=== PATIENT | female | born 1995 ===

== ENCOUNTER 2020-07-20 17:18 | Emergency (ER) | payer MEDICAID, SELFPAY ==
--- NOTE | 2020-07-20 19:08 | ED.GENADULT ---
HPI - General Adult General Chief complaint: Headache Stated complaint: headache Time Seen by Provider: 07/20/20 18:49 Source: patient Mode of arrival: ambulatory Limitations: language barrier (Turkish speaking only, rn telehealth used to obtain information) History of Present Illness HPI narrative: 25-year-old female who presents emergency department for evaluation of headache. The patient states that she has had a right-sided headache for 4 days. The pain is a sharp, stabbing, constant pain which is 10/10 at its worst. She 10 height associated fever, chills, neck pain, nausea, vomiting, rhinorrhea, cough, chest pain or shortness of breath. She denied numbness or weakness. She states she had a similar headache 2 years prior and was secondary to anemia. Patient states she took ibuprofen without any relief of her pain. Currently in the emergency department she states that her pain is 10/10. Related Data Previous Rx's Medication Instructions Recorded ferrous sulfate 325 mg PO TID #360 tab 07/20/20 metoclopramide HCl [Reglan] 10 mg PO Q6H PRN #14 tab 07/20/20 Allergies Allergy/AdvReac Type Severity Reaction Status Date / Time garlic [GARLIC] Allergy Unknown SWELLING Unverified 03/11/20 19:48 Review of Systems Review of Systems: Yes all other systems are reviewed and are negative Neurologic: Reports Abnormal speech present [facility] Past Medical History [facility] Narrative: Patient has a history of asthma and anemia, she denies tobacco, alcohol and drug use. Medical History (Updated 07/20/20 @ 20:53 by Camden Morgan MD) Anemia Asthma Social History Social History Advance Directives: No Physical Exam Vital Signs: Vital Signs: Last Vital Signs Temp 98.0 F 07/20/20 19:11 Pulse 120 H 07/20/20 19:11 Resp 18 07/20/20 19:11 BP 149/85 H 07/20/20 19:11 Pulse Ox 100 07/20/20 19:11 Body Mass Index 55.7 Const: General: cooperative, no acute distress, alert and awake Nutritional Appearance: obese Orientation/consciousness: oriented to person and oriented to place Limitations: no limitations HENMT: Head: Yes normal to inspection, Yes normocephalic and Yes atraumatic Ears: external ears normal General nose exam: Normal external nose present Face and sinus: Yes normal facial exam and Yes Facial tenderness on exam of face and sinuses (Bilateral frontal and right church area) Mouth: Normal oral and palatal mucosa present Throat: Yes posterior oropharynx normal Eyes: General: appearance normal, both eyes and all related structures Periorbital: periorbital findings normal Eyelids: Yes eyelids normal Conjunctivae: conjunctivae normal Sclerae: sclerae normal Corneas: corneas normal Pupils: Equal, round and reactive pupils present Direct Ophthalmoscopy: normal light reflex Neck: Neck: Yes normal visual inspection and Yes supple Lymphatic: no lymphadenopathy noted Chest: Chest palpation & inspection: normal inspection of the chest and normal palpation of entire chest wall Resp: Effort & Inspection: normal respiratory effort, abnormal respiratory pattern, no audible wheezes and no respiratory distress Auscultation: clear to auscultation bilaterally, no crackles, no rales, no rhonchi and no wheezes Cardio: Rate: regular rate Rhythm: regular rhythm Heart sounds: S1 normal heart sound present, S2 normal heart sound present and Murmur heart sound present GI: Inspection: No distended Palpation (GI): Soft to palpation, nontender, no guarding and No hepatosplenomegaly present Auscultation: normal bowel sounds : General: Yes no CVA tenderness Back/Spine/Pelvis: Back: no CVA tenderness Cervical Spine: normal cervical lordosis Thoracic/Lumbar Spine: thoracic and lumbar spine normal to inspection Skin: General skin exam: no rashes or lesions noted Lesions: no lesions Rashes: no rashes Wounds: no wounds Neuro: General: oriented to person and oriented to place Cranial nerves: Yes CN's II-XII intact bilaterally and Yes Equal, round and reactive pupils present Cognition (Neuro): normal cognition Speech: Abnormal speech present Motor exam (neuro): 5/5 motor strength present throughout Extrem: General: Yes normal to inspection, Yes full ROM, Yes no pedal edema and Yes no calf tenderness Psych: Appearance: grossly normal Mental Status: mental status grossly normal Speech and movement: Clear speech present Affect: normal affect Attitude: cooperative Thought process: Normal thought process present Thought content: Normal thought content present Course Course Course Narrative: 25-year-old female who presents emergency department for evaluation of right-sided headache x4 days, physical examination revealed tenderness with palpation of the frontal and right temporal regions of her head otherwise was unremarkable. I did order laboratory evaluation to include CBC and comprehensive metabolic panel since the patient states that in the past she has had this type of headache with severe anemia. The patient's headache was treated with Toradol 30 mg IV, regular and 10 mg IV and Benadryl 50 mg IV. 2046: The patient's laboratory evaluation did reveal significant anemia with an H&H of 5.9 and 23.3. She did have a very low MCV of 62.6. The patient does have heavy menses and I suspect that she has not been compliant with her iron regimen. I did discuss this with her. The patient was prescribed iron sulfate 300 mg 3 times a day, I told her that she needs to take this for 3 months. She was advised to follow-up in 2 weeks with her doctor to get a repeat H&H. The patient's headaches will be treated with the following regimen: Reglan 10 mg, Benadryl 50 mg in extra-strength Tylenol 2 tablets every 6 hours as needed for headache. She was given verbal and printed instructions and discharged home. Medical Decision Making Lab Data Result diagrams: 07/20/20 19:45 07/20/20 19:46 Labs: Lab Results 07/20/20 07/20/20 Range/Units 19:45 19:46 WBC 11.4 H (4.8-10.8) X10*3/uL RBC 3.72 L (4.20-5.50) X10*6/uL Hgb 5.9 L* (12.0-16.0) g/dl Hct 23.3 L (37-47) % MCV 62.6 L (80-98) fL MCH 15.9 L (27.0-33.0) pg MCHC 25.3 L (31.0-35.0) g/dl RDW 24.3 H (11.0-16.0) % Plt Count 419 H (160-400) X10*3/uL MPV 9.3 L (9.4-12.3) fL Immature Gran % (Auto) 0.4 (0.0-0.4) % Neut % (Auto) 70.3 (45-73) % Lymph % (Auto) 14.9 L (20-40) % [place] % (Auto) 3.3 (2-11) % Eos % (Auto) 10.7 H (0-4) % Baso % (Auto) 0.4 (0-2) % Lymph # (Auto) 1.7 (1.2-4.9) X10*3/uL [place] # (Auto) 0.4 (0.1-1.2) X10*3/uL Eos # (Auto) 1.2 H (0.0-0.4) X10*3/uL Baso # (Auto) 0.0 (0.0-0.2) X10*3/uL Abs Immat Gran (auto) 0.05 H (0.00-0.03) X10*3/uL Absolute Neuts (auto) 8.0 (2.0-8.3) X10*3/uL Absolute Nucleated RBC 0.040 H (0.0-0.012) X10*3/uL Nucleated RBC % (auto) 0.4 H (0.0-0.2) /100WBC Sodium 140 (135-145) mmol/L Potassium 4.7 (3.3-5.1) mmol/l Chloride 106 (96-108) mmol/L Carbon Dioxide 23 (22-29) mmol/L Anion Gap 16 (12-20) BUN 12 (9-16) mg/dL Creatinine 0.80 (0.5-1.4) mg/dL Estim Creat Clear Calc 157.1 Estimated GFR > 60 Random Glucose 125 H (60-115) mg/dL Calcium 9.0 (8.4-10.2) mg/dL Total Bilirubin 0.7 (0.0-1.0) mg/dL AST 24 (5-31) U/L ALT 13 (0-31) U/L Alkaline Phosphatase 69 (39-117) U/L Total Protein 8.0 (6.5-8.0) g/dL Albumin 4.1 (3.5-5.0) g/dL Discharge Plan Discharge Clinical Impression: Microcytic anemia Headache Qualifiers: Headache type: unspecified Headache chronicity pattern: acute headache Intractability: not intractable Qualified Code(s): R51.9 - Headache, unspecified Patient Disposition: Home, Self-Care Instructions: Iron Deficiency Anemia (ED) Additional Instructions: Your blood work did reveal a low hemoglobin and hematocrit of 5.9 in 23.3. A normal hemoglobin is 12 and a normal hematocrit is 35. These low values are due to the fact that you lose iron every time you have menstrual bleeding therefore you need to take iron sulfate 300 mg, 3 times a day for 3 months. It is important that you follow-up with your doctor in 2 weeks to get a repeat hematocrit and hemoglobin and hopefully they will be improvement if you take your iron. For your headaches you can take the following medications together every 6 hours: Extra-strength Tylenol 500 mg, 2 pills Benadryl 25 mg pills, 2 pills Reglan (metoclopramide) 10 mg, 1 pill These medications will make you sleepy, lie down in a dark quiet room and that should help your headache go away. Do not drive if you take these medications. Follow-up with your doctor in 2 weeks. Please return to the emergency department if your symptoms get worse or if you develop any symptoms that are concerning to you. Prescriptions: New metoclopramide HCl [Reglan] 10 mg tablet 10 mg PO Q6H PRN (Reason: nausea and vomiting) Qty: 14 RF: 0 ferrous sulfate 325 mg (65 mg iron) tablet 325 mg PO TID Qty: 360 RF: 0 Referrals: [place] [Primary Care Provider] - 2 weeks (Migraine like headache, low H&H 5.9 and 23.3 with a low MCV of 62.6. Started on iron sulfate 3 times a day, needs repeat H&H in 2 weeks)
[2020-07-20 19:11] VITALS: BP 149/85; PULSE 120; RESP 18; TEMP 36.7; O2SAT 100; BMI 55.7
--- NOTE | 2020-07-20 19:15 | PC.NURSE ---
ASSUMED CARE OF PT. MD IN ROOM WITH SOCIALLY RESPONSIBLE INVESTMENT ADVISER.
--- NOTE | 2020-07-20 19:40 | PC.NURSE ---
IV PLACED TO LAC, LABS DRAWN TO LAB. NS UP AND RUNNING W/O, SITE INTACT. PT MEDICATED PER EMAR FOR MIGRAINE PAIN.
[2020-07-20 19:52] LABS: MANUAL DIFF FLAG NO
[2020-07-20 19:53] LABS: Monocytes Absolute Auto 0.4 X10*3/uL (0.1-1.2); Monocytes Percent Auto 3.3 % (2-11); NRBC Pct Auto 0.4 /100WBC (0.0-0.2)
[2020-07-20 19:57] LABS: Basophils Percent Auto 0.4 % (0-2); Eosinophils Absolute Auto 1.2 X10*3/uL (0.0-0.4); Eosinophils Percent Auto 10.7 % (0-4); Hematocrit 23.3 % (37-47); Imm Gran Abs Auto 0.05 X10*3/uL (0.00-0.03); Imm Gran Pct Auto 0.4 % (0.0-0.4); Lymphocytes Absolute Auto 1.7 X10*3/uL (1.2-4.9); Lymphocytes Percent Auto 14.9 % (20-40); Mean Corpuscular HGB Conc 25.3 g/dl (31.0-35.0); Mean Corpuscular Hemoglobin 15.9 pg (27.0-33.0); Mean Platelet Volume 9.3 fL (9.4-12.3); Neutrophils Percent Auto 70.3 % (45-73); Platelet Count 419 X10*3/uL (160-400); Red Blood Count 3.72 X10*6/uL (4.20-5.50); Red Cell Distribution Width 24.3 % (11.0-16.0); White Blood Count 11.4 X10*3/uL (4.8-10.8)
[2020-07-20] MEDS: Metoclopramide HCl 10 MG/2 ML VIAL IVPUSH (20:04)
[2020-07-20] MEDS: diphenhydrAMINE HCL 50 MG/ML VIAL IVPUSH (20:04)
[2020-07-20] MEDS: Ketorolac Tromethamine 30 MG/ML VIAL IVPUSH (20:05)
[2020-07-20] MEDS: 0.9 % Sodium Chloride 1,000 ML 999 ML IV (20:05)
[2020-07-20 20:15] LABS: Mean Corpuscular Volume 62.6 fL (80-98)
[2020-07-20 20:17] LABS: Hemoglobin 5.9 g/dl (12.0-16.0)
[2020-07-20 20:25] LABS: Alanine Aminotransferase 13 U/L (0-31); Albumin Level 4.1 g/dL (3.5-5.0); Alkaline Phosphatase 69 U/L (39-117); Anion Gap 16 (12-20); Aspartate Amino Transferase 24 U/L (5-31); Bilirubin Total 0.7 mg/dL (0.0-1.0); Blood Urea Nitrogen 12 mg/dL (9-16); Carbon Dioxide 23 mmol/L (22-29); Chloride 106 mmol/L (96-108); Creatinine Clr Calc Pharmacy 157.1; Estimated Glomerular Filt Rate > 60; Glucose Random 125 mg/dL (60-115); Potassium 4.7 mmol/l (3.3-5.1); Sodium 140 mmol/L (135-145)
--- NOTE | 2020-07-20 20:38 | PC.NURSE ---
HGB 5.9 MD AWARE. MD IN ROOM WITH INTRETPRETOR FOR RE-EVAL. WILL CONTINUE TO MONITOR PT.
== END 2020-07-20 21:29 | disposition home or self-care (01) ==
PROVIDERS: Emergency Provider Emergency Medicine Emergency Medical Services
DX: R51.9 Headache, unspecified (principal); D50.9 Iron deficiency anemia, unspecified
CPT/HCPCS: 36415; 80053; 85025; 85060; 96361; 96374; 96375; 99283; 99284; J1200; J1885; J2765

== ENCOUNTER 2021-03-21 17:00 | Emergency (ER) | payer MEDICAID, SELFPAY ==
[2021-03-21 19:26] VITALS: BP 122/90; PULSE 90; RESP 16; TEMP 36.5; O2SAT 100; BMI 60.7
[2021-03-21 20:13] LABS: MANUAL DIFF FLAG NO
[2021-03-21 20:14] LABS: Basophils Percent Auto 0.1 % (0-2); Eosinophils Absolute Auto 0.1 X10*3/uL (0.0-0.4); Eosinophils Percent Auto 0.8 % (0-4); Hematocrit 27.1 % (37-47); Hemoglobin 7.1 g/dl (12.0-16.0); Imm Gran Abs Auto 0.05 X10*3/uL (0.00-0.03); Imm Gran Pct Auto 0.5 % (0.0-0.4); Mean Corpuscular HGB Conc 26.2 g/dl (31.0-35.0); Mean Corpuscular Hemoglobin 16.3 pg (27.0-33.0); Mean Platelet Volume 9.6 fL (9.4-12.3); Monocytes Absolute Auto 0.5 X10*3/uL (0.1-1.2); Monocytes Percent Auto 4.4 % (2-11); NRBC Pct Auto 0.3 /100WBC (0.0-0.2); Neutrophils Percent Auto 75.2 % (45-73); Platelet Count 521 X10*3/uL (160-400); Red Blood Count 4.35 X10*6/uL (4.20-5.50); Red Cell Distribution Width 23.3 % (11.0-16.0); White Blood Count 10.6 X10*3/uL (4.8-10.8)
[2021-03-21 20:15] LABS: Mean Corpuscular Volume 62.3 fL (80-98)
[2021-03-21 20:31] LABS: Alanine Aminotransferase 12 U/L (0-31); Albumin Level 4.5 g/dL (3.5-5.0); Alkaline Phosphatase 73 U/L (39-117); Anion Gap 15 (12-20); Aspartate Amino Transferase 14 U/L (5-31); Bilirubin Direct 0.5 mg/dL (0.0-0.5); Bilirubin Total 1.3 mg/dL (0.0-1.0); Blood Urea Nitrogen 10 mg/dL (9-16); Calcium 9.6 mg/dL (8.4-10.2); Carbon Dioxide 23 mmol/L (22-29); Chloride 105 mmol/L (96-108); Creatinine Clr Calc Pharmacy 168.2; Estimated Glomerular Filt Rate > 60; Glucose Random 94 mg/dL (60-115); Lipase 19 U/L (8-78); Potassium 4.4 mmol/L (3.3-5.1); Sodium 139 mmol/L (135-145); Total Protein 8.1 g/dL (6.5-8.0)
[2021-03-21 21:10] VITALS: BP 133/79; PULSE 95; RESP 18; TEMP 37.3; O2SAT 100
--- NOTE | 2021-03-21 21:20 | ED.ABDPAIN ---
HPI - Abdominal Pain General Chief Complaint: Abdominal Pain Stated Complaint: diarrhea Time Seen by Provider: 03/21/21 21:19 Source: patient Mode of arrival: ambulatory Limitations: no limitations History of Present Illness HPI narrative: Patient history of chronic anemia not taking her iron pills been nauseated and vomiting for last 2 days 10-15 times a day with few loose bowels unable to take anything p.o.. Diffuse abdominal pain no fever no chills no recent use antibiotics no urinary complaints no dizziness or passing out Related Data Previous Rx's Medication Instructions Recorded ferrous sulfate 325 mg (65 mg 325 mg PO TID #360 tab 07/20/20 iron) tablet metoclopramide HCl 10 mg tablet 10 mg PO Q6H PRN #14 tab 07/20/20 (Reglan) ferrous sulfate 325 mg (65 mg 325 mg PO DAILY #30 tab 03/21/21 iron) tablet ondansetron 4 mg disintegrating 4 mg PO Q6-8H PRN #7 tab 03/21/21 tablet Allergies Allergy/AdvReac Type Severity Reaction Status Date / Time garlic [GARLIC] Allergy Unknown SWELLING Unverified 03/11/20 19:48 Review of Systems Review of Systems Yes all other systems are reviewed and are negative Physical Exam Vital Signs: Vital Signs: Last Vital Signs Temp 99.2 F 03/21/21 21:10 Pulse 95 03/21/21 21:10 Resp 18 03/21/21 21:10 BP 133/79 03/21/21 21:10 Pulse Ox 100 03/21/21 21:10 Body Mass Index 60.7 Appearance: Alert. Oriented X3. No acute distress. Eyes: Pallor++ ENT: Pharynx normal. Oral Mucosa moist Neck: Normal inspection. Neck supple. CVS: Normal heart rate and rhythm. Pulses normal. Respiratory: No respiratory distress. Equal air entry bilateral, no wheezing/rales/rhonchi Abdomen: Soft and nontender. Bowel sounds are present, no mass palpable, no CVA tenderness Skin: Skin warm and dry. Normal skin color. Normal skin turgor. Extremities: No lower extremity edema. Neuro: Oriented X 3. MDM - Abdominal Pain Lab Data Result diagrams: 03/21/21 19:56 03/21/21 19:56 Labs: Lab Results 03/21/21 03/21/21 03/21/21 Range/Units 19:56 19:56 21:56 WBC 10.6 (4.8-10.8) X10*3/uL RBC 4.35 (4.20-5.50) X10*6/uL Hgb 7.1 L D (12.0-16.0) g/dl Hct 27.1 L (37-47) % MCV 62.3 L (80-98) fL MCH 16.3 L (27.0-33.0) pg MCHC 26.2 L (31.0-35.0) g/dl RDW 23.3 H (11.0-16.0) % Plt Count 521 H (160-400) X10*3/uL MPV 9.6 (9.4-12.3) fL Immature Gran % (Auto) 0.5 H (0.0-0.4) % Neut % (Auto) 75.2 H (45-73) % Lymph % (Auto) 19.0 L (20-40) % [place] % (Auto) 4.4 (2-11) % Eos % (Auto) 0.8 (0-4) % Baso % (Auto) 0.1 (0-2) % Lymph # (Auto) 2.0 (1.2-4.9) X10*3/uL [place] # (Auto) 0.5 (0.1-1.2) X10*3/uL Eos # (Auto) 0.1 (0.0-0.4) X10*3/uL Baso # (Auto) 0.0 (0.0-0.2) X10*3/uL Abs Immat Gran (auto) 0.05 H (0.00-0.03) X10*3/uL Absolute Neuts (auto) 8.0 (2.0-8.3) X10*3/uL Absolute Nucleated RBC 0.030 H (0.0-0.012) X10*3/uL Nucleated RBC % (auto) 0.3 H (0.0-0.2) /100WBC Sodium 139 (135-145) mmol/L Potassium 4.4 (3.3-5.1) mmol/L Chloride 105 (96-108) mmol/L Carbon Dioxide 23 (22-29) mmol/L Anion Gap 15 (12-20) BUN 10 (9-16) mg/dL Creatinine 0.79 (0.5-1.4) mg/dL Estim Creat Clear Calc 168.2 Estimated GFR > 60 Random Glucose 94 (60-115) mg/dL Calcium 9.6 D (8.4-10.2) mg/dL Total Bilirubin 1.3 H (0.0-1.0) mg/dL Direct Bilirubin 0.5 (0.0-0.5) mg/dL AST 14 D (5-31) U/L ALT 12 (0-31) U/L Alkaline Phosphatase 73 (39-117) U/L Total Protein 8.1 H (6.5-8.0) g/dL Albumin 4.5 (3.5-5.0) g/dL Lipase 19 (8-78) U/L Urine Color RED Urine Appearance TURBID Urine pH 7.0 (5.0-8.0) Ur Specific [place] 1.025 (1.005-1.025) Urine Protein 2+ H (NEG-TRACE) MG/DL Urine Glucose (UA) NEG (NEG) MG/DL Urine Ketones 15 (NEG) MG/DL Urine Blood 3+ H (NEG) Urine Nitrite NEG (NEG) Ur Leukocyte Esterase 1+ H (NEG) Urine RBC TNTC H (0) /HPF Urine WBC 1-4 (0-4) /HPF Ur Squamous Epith Cells TRACE /LPF Urine Bacteria TRACE /LPF Discharge Plan Discharge Clinical Impression: Gastroenteritis Patient Disposition: Home, Self-Care Instructions: Gastroenteritis (ED) Additional Instructions: Drink plenty of fluids Medicine for nausea as advised Take iron tablets daily as prescribed and follow with primary care doctor Kimberlyn segurao l?quido Medicina para las n?useas seg?n lo recomendado [place] tabletas de maureen diariamente seg?n lo prescrito y siga con el m?dico de atenci?n primaria. Prescriptions: New ondansetron 4 mg tablet,disintegrating 4 mg PO Q6-8H PRN (Reason: nausea and vomiting) Qty: 7 RF: 0 ferrous sulfate 325 mg (65 mg iron) tablet 325 mg PO DAILY Qty: 30 RF: 0 No Action metoclopramide HCl [Reglan] 10 mg tablet 10 mg PO Q6H PRN (Reason: nausea and vomiting) Qty: 14 RF: 0 ferrous sulfate 325 mg (65 mg iron) tablet 325 mg PO TID Qty: 360 RF: 0 Discharge Date/Time: 03/21/21 23:01 Print Language: Divehi [facility] Past Medical History Medical History Anemia Asthma Social History Social History Advance Directives: No Advance Directives Information Provided: No Patient : No
[2021-03-21] MEDS: Ferrous Sulfate 324 MG TABLET.DR PO (22:03)
[2021-03-21] MEDS: Loperamide HCl 2 MG CAPSULE PO (22:03)
[2021-03-21] MEDS: Ondansetron ODT 4 MG TAB.RAPDIS TRANSLINGU (22:04)
--- NOTE | 2021-03-21 22:18 | PC.NURSE ---
Patient c/o abdominal pain. A+Ox4. [place] speaking. Neurology Technologist required. Meds given per MAR resting safely.
[2021-03-21 22:20] LABS: Appearance Urine TURBID; Color Urine RED; Glucose Urine UA NEG (NEG); Leukocyte Esterase Urine 1+ (NEG); Nitrite Urine NEG (NEG); Specific Gravity - Urine 1.025 (1.005-1.025); UACC Culture Trigger YES; Urine Blood 3+ (NEG); Urine Ketones 15 MG/DL (NEG); Urine Protein 2+ MG/DL (NEG-TRACE)
[2021-03-21 22:41] LABS: RBC Urine TNTC /HPF (0)
[2021-03-21 22:42] LABS: Bacteria Urine TRACE /LPF; Squamous Epithelial Cell Urine TRACE /LPF
== END 2021-03-21 23:01 | disposition home or self-care (01) ==
PROVIDERS: Emergency Provider Internal Medicine
DX: K52.9 Noninfective gastroenteritis and colitis, unspecified (principal); R10.9 Unspecified abdominal pain; Z79.899 Other long term (current) drug therapy
CPT/HCPCS: 36415; 80053; 81001; 81003; 82248; 83690; 85025; 87086; 99283; 99284

== ENCOUNTER 2021-04-29 06:55 | Emergency (ER) | payer MEDICAID, SELFPAY ==
[2021-04-29 07:17] VITALS: BP 121/51; PULSE 91; RESP 18; TEMP 36.6; O2SAT 99; BMI 65.8
--- NOTE | 2021-04-29 07:24 | ED_ITS ---
HPI - Nausea/Vomiting/Diarrhea General Chief complaint: Nausea/Vomiting/Diarrhea <Nidia Rod DO - Last Filed: 04/29/21 10:25> Stated complaint: general medical? 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 <Nidia Rod DO - Last Filed: 04/29/21 10:25> Mode of arrival: ambulatory <Nidia Rod DO - Last Filed: 04/29/21 10:25> Limitations: no limitations <Nidia Rod DO - Last Filed: 04/29/21 10:25> History of Present Illness MD elicited complaint: nausea, vomiting, diarrhea and abdominal pain <Nidia Rod DO - Last Filed: 04/29/21 10:25> Pertinent past history: other (sister had same thing) <Nidia Rod DO - Last Filed: 04/29/21 10:25> Onset (ago): day(s) (3) <Nidia Rod DO - Last Filed: 04/29/21 10:25> Description of vomiting: food contents <Nidia Rod DO - Last Filed: 04/29/21 10:25> Associated nausea: Yes <Nidia Rod DO - Last Filed: 04/29/21 10:25> Associated abdominal pain: Yes <Nidia Rod DO - Last Filed: 04/29/21 10:25> Location of pain: epigastric <Nidia Rod DO - Last Filed: 04/29/21 10:25> Pain consistency: intermittent <Nidia Rod DO - Last Filed: 04/29/21 10:25> Severity: moderate <Nidia Rod DO - Last Filed: 04/29/21 10:25> Quality: cramping <Nidia Rod DO - Last Filed: 04/29/21 10:25> Exacerbating factors: eating <Nidia Rod DO - Last Filed: 04/29/21 10:25> Relieving factors: none <Nidia Rod DO - Last Filed: 04/29/21 10:25> Context: sick contacts <Nidia Rod DO - Last Filed: 04/29/21 10:25> Associated symptoms: loss of appetite and nausea/vomiting <Nidia Rod DO - Last Filed: 04/29/21 10:25> Related Data Home medications: Previous Rx's Medication Instructions Recorded metoclopramide HCl 10 mg tablet 10 mg PO Q6H PRN #14 tab 07/20/20 (Reglan) ferrous sulfate 325 mg (65 mg 325 mg PO DAILY #30 tab 03/21/21 iron) tablet ondansetron 4 mg disintegrating 4 mg PO Q6-8H PRN #7 tab 03/21/21 tablet <Nidia Rod DO - Last Filed: 04/29/21 10:25> Allergies/Adverse reactions: Allergies Allergy/AdvReac Type Severity Reaction Status Date / Time garlic [GARLIC] Allergy Unknown SWELLING Unverified 03/11/20 19:48 <Nidia Rod DO - Last Filed: 04/29/21 10:25> Review of Systems Review of Systems: Constitutional : No Weight loss, No Fever, No Chills ENT/Mouth : No sore throat, No Rhinorrhea Eyes: No Swelling, No Redness Cardiovascular : No Chest Pain, No SOB, No Edema Respiratory : No Cough, No Sputum, No Wheezing Gastrointestinal : Positive Nausea, Positive Vomiting, positive Diarrhea, p ositive abdominal Pain, No Hematochezia, No Melena Genitourinary : No Dysuria, No Urinary Frequency, No Hematuria, No Urgency Musculoskeletal : No joint pain, No Myalgias, No Joint Swelling Skin : No Skin Lesions, No rash Neuro : No Weakness, No Numbness, No Dizziness, No Headache Psych : No Anxiety/Panic, No Depression Heme/Lymph: No Bruising, No Lymphadenopathy Endocrine : No Polyuria, No Polydipsia All other systems reviewed and are negative. <Nidia Rod DO - Last Filed: 04/29/21 10:25> Gastrointestinal: Gastrointestinal: Reports nausea <Nidia Rod DO - Last Filed: 04/29/21 10:25> [facility] Past Medical History Attestation statement: The following information was validated with the patient. <Nidia Rod DO - Last Filed: 04/29/21 10:25> Medical History: Medical History Anemia Asthma <Nidia Rod DO - Last Filed: 04/29/21 10:25> Social History Social History: Social History (Updated 04/29/21 @ 07:30 by Nidia Rod DO) Patient Tobacco Use Status: Never used Tobacco Use of substances other than those prescribed or required for medical reasons: No Advance Directives: No Advance Directives Information Provided: Yes Patient : No <Nidia Rod DO - Last Filed: 04/29/21 10:25> Physical Exam Vital Signs: Vital Signs: Last Vital Signs Temp 98 F 04/29/21 07:17 Pulse 71 04/29/21 08:49 Resp 18 04/29/21 08:49 BP 116/40 L 04/29/21 08:49 Pulse Ox 99 04/29/21 08:49 Body Mass Index 65.8 <Nidia Rod DO - Last Filed: 04/29/21 10:25> Vital Signs: Last Vital Signs Temp 98 F 04/29/21 07:17 Pulse 71 04/29/21 08:49 Resp 18 04/29/21 08:49 BP 116/40 L 04/29/21 08:49 Pulse Ox 99 04/29/21 08:49 Body Mass Index 65.8 <AVRIL Monroe - Last Filed: 04/29/21 10:08> Appearance: Alert. Oriented X3. No acute distress. Eyes: Pupils equal, round and reactive to light. ENT: Pharynx normal. Neck: Normal inspection. Neck supple. CVS: Normal heart rate and rhythm. Pulses normal. Respiratory: No respiratory distress. Breath sounds normal. Abdomen: Soft and mild epigastric ttp no rebound or guarding Skin: Skin warm and dry. Normal skin color. Normal skin turgor. Extremities: No lower extremity edema. No calf ttp Neuro: Oriented X 3. No motor deficit. No sensory deficit. <Nidia Rod DO - Last Filed: 04/29/21 10:25> Course Course Course Narrative: not that far off from baseline anemia but will offer blood transfusion patient wants blood transfusion has not been able to tolerate her Fe this week, plans to see her PCP contaminated UA did well DC post transfusion <Nidia Rod DO - Last Filed: 04/29/21 10:25> MDM - Nausea/Vomiting/Diarrhea MDM Narrative Medical decision making narrative: 25 yo female not toxic here with n/v/d and epigastric pain no RUQ pain x 3 day - sister with same illness. no bloody stools. At this time basic labs, zofran, IVF. Patient mentioned she is here to get note for work as well due to missing work Sunday. Given her mild abdominal exam I do not suspect GB disese or appendicitis <Nidia Rod DO - Last Filed: 04/29/21 10:25> Lab Data Result diagrams: : 04/29/21 07:55 04/29/21 07:55 <Nidia Rod, DO - Last Filed: 04/29/21 10:25> Labs: Lab Results 04/29/21 04/29/21 04/29/21 Range/Units 07:55 07:55 07:55 WBC 6.5 (4.8-10.8) X10*3/uL RBC 4.36 (4.20-5.50) X10*6/uL Hgb 6.9 L* (12.0-16.0) g/dl Hct 27.7 L (37.0-47.0) % MCV 63.5 L (80.0-98.0) fL MCH 15.8 L (27.0-33.0) pg MCHC 24.9 L (31.0-35.0) g/dl RDW 22.2 H (11.0-16.0) % Plt Count 485 H (160-400) X10*3/uL MPV 9.6 (9.4-12.3) fL Immature Gran % (Auto) 0.6 H (0.0-0.4) % Neut % (Auto) 73.4 H (45-73) % Lymph % (Auto) 17.7 L (20-40) % [place] % (Auto) 6.6 (2-11) % Eos % (Auto) 1.5 (0-4) % Baso % (Auto) 0.2 (0-2) % Lymph # (Auto) 1.2 (1.2-4.9) X10*3/uL [place] # (Auto) 0.4 (0.1-1.2) X10*3/uL Eos # (Auto) 0.1 (0.0-0.4) X10*3/uL Baso # (Auto) 0.0 (0.0-0.2) X10*3/uL Abs Immat Gran (auto) 0.04 H (0.00-0.03) X10*3/uL Absolute Neuts (auto) 4.8 (2.0-8.3) x10*3/uL Absolute Nucleated RBC 0.000 (0.0-0.012) X10*3/uL Nucleated RBC % (auto) 0.0 (0.0-0.2) /100WBC Sodium 141 (135-145) mmol/L Potassium 4.2 (3.3-5.1) mmol/L Chloride 109 H (96-108) mmol/L Carbon Dioxide 26 (22-29) mmol/L Anion Gap 10 L (12-20) BUN 12 (9-16) mg/dL Creatinine 0.75 (0.5-1.4) mg/dL Estim Creat Clear Calc 161.4 Estimated GFR > 60 Random Glucose 109 (60-115) mg/dL Calcium 9.0 D (8.4-10.2) mg/dL Total Bilirubin 0.6 (0.0-1.0) mg/dL Direct Bilirubin 0.2 (0.0-0.5) mg/dL AST 12 (5-31) U/L ALT 14 (0-31) U/L Alkaline Phosphatase 59 (39-117) U/L Total Protein 7.0 (6.5-8.0) g/dL Albumin 3.9 (3.5-5.0) g/dL Lipase 28 (8-78) U/L Urine Color Urine Appearance Urine pH (5.0-8.0) Ur Specific [place] (1.005-1.025) Urine Protein (NEG-TRACE) MG/DL Urine Glucose (UA) (NEG) MG/DL Urine Ketones (NEG) MG/DL Urine Blood (NEG) Urine Nitrite (NEG) Ur Leukocyte Esterase (NEG) Urine RBC (0) /HPF Urine WBC (0-4) /HPF Ur Squamous Epith Cells /LPF Urine Bacteria /LPF Urine Test (NEGATIVE) COVID-19 (AUGIE) Negative (Negative) COVID-19 Clin Com See Note Blood Type Antibody Screen Crossmatch 04/29/21 04/29/21 04/29/21 Range/Units 08:53 09:28 09:28 WBC (4.8-10.8) X10*3/uL RBC (4.20-5.50) X10*6/uL Hgb (12.0-16.0) g/dl Hct (37.0-47.0) % MCV (80.0-98.0) fL MCH (27.0-33.0) pg MCHC (31.0-35.0) g/dl RDW (11.0-16.0) % Plt Count (160-400) X10*3/uL MPV (9.4-12.3) fL Immature Gran % (Auto) (0.0-0.4) % Neut % (Auto) (45-73) % Lymph % (Auto) (20-40) % [place] % (Auto) (2-11) % Eos % (Auto) (0-4) % Baso % (Auto) (0-2) % Lymph # (Auto) (1.2-4.9) X10*3/uL [place] # (Auto) (0.1-1.2) X10*3/uL Eos # (Auto) (0.0-0.4) X10*3/uL Baso # (Auto) (0.0-0.2) X10*3/uL Abs Immat Gran (auto) (0.00-0.03) X10*3/uL Absolute Neuts (auto) (2.0-8.3) x10*3/uL Absolute Nucleated RBC (0.0-0.012) X10*3/uL Nucleated RBC % (auto) (0.0-0.2) /100WBC Sodium (135-145) mmol/L Potassium (3.3-5.1) mmol/L Chloride (96-108) mmol/L Carbon Dioxide (22-29) mmol/L Anion Gap (12-20) BUN (9-16) mg/dL Creatinine (0.5-1.4) mg/dL Estim Creat Clear Calc Estimated GFR Random Glucose (60-115) mg/dL Calcium (8.4-10.2) mg/dL Total Bilirubin (0.0-1.0) mg/dL Direct Bilirubin (0.0-0.5) mg/dL AST (5-31) U/L ALT (0-31) U/L Alkaline Phosphatase (39-117) U/L Total Protein (6.5-8.0) g/dL Albumin (3.5-5.0) g/dL Lipase (8-78) U/L Urine Color YELLOW Urine Appearance HAZY Urine pH 7.5 (5.0-8.0) Ur Specific [place] 1.020 (1.005-1.025) Urine Protein NEG (NEG-TRACE) MG/DL Urine Glucose (UA) NEG (NEG) MG/DL Urine Ketones NEG (NEG) MG/DL Urine Blood NEG (NEG) Urine Nitrite NEG (NEG) Ur Leukocyte Esterase 3+ H (NEG) Urine RBC 0 (0) /HPF Urine WBC 15-29 H (0-4) /HPF Ur Squamous Epith Cells 3+ /LPF Urine Bacteria NONE /LPF Urine Test NEGATIVE (NEGATIVE) COVID-19 (AUGIE) (Negative) COVID-19 Clin Com Blood Type B Positive Antibody Screen NEGATIVE Crossmatch See Detail <Nidia Rod, DO - Last Filed: 04/29/21 10:25> Lab Results 04/29/21 04/29/21 04/29/21 Range/Units 07:55 07:55 07:55 WBC 6.5 (4.8-10.8) X10*3/uL RBC 4.36 (4.20-5.50) X10*6/uL Hgb 6.9 L* (12.0-16.0) g/dl Hct 27.7 L (37.0-47.0) % MCV 63.5 L (80.0-98.0) fL MCH 15.8 L (27.0-33.0) pg MCHC 24.9 L (31.0-35.0) g/dl RDW 22.2 H (11.0-16.0) % Plt Count 485 H (160-400) X10*3/uL MPV 9.6 (9.4-12.3) fL Immature Gran % (Auto) 0.6 H (0.0-0.4) % Neut % (Auto) 73.4 H (45-73) % Lymph % (Auto) 17.7 L (20-40) % [place] % (Auto) 6.6 (2-11) % Eos % (Auto) 1.5 (0-4) % Baso % (Auto) 0.2 (0-2) % Lymph # (Auto) 1.2 (1.2-4.9) X10*3/uL [place] # (Auto) 0.4 (0.1-1.2) X10*3/uL Eos # (Auto) 0.1 (0.0-0.4) X10*3/uL Baso # (Auto) 0.0 (0.0-0.2) X10*3/uL Abs Immat Gran (auto) 0.04 H (0.00-0.03) X10*3/uL Absolute Neuts (auto) 4.8 (2.0-8.3) x10*3/uL Absolute Nucleated RBC 0.000 (0.0-0.012) X10*3/uL Nucleated RBC % (auto) 0.0 (0.0-0.2) /100WBC Sodium 141 (135-145) mmol/L Potassium 4.2 (3.3-5.1) mmol/L Chloride 109 H (96-108) mmol/L Carbon Dioxide 26 (22-29) mmol/L Anion Gap 10 L (12-20) BUN 12 (9-16) mg/dL Creatinine 0.75 (0.5-1.4) mg/dL Estim Creat Clear Calc 161.4 Estimated GFR > 60 Random Glucose 109 (60-115) mg/dL Calcium 9.0 D (8.4-10.2) mg/dL Total Bilirubin 0.6 (0.0-1.0) mg/dL Direct Bilirubin 0.2 (0.0-0.5) mg/dL AST 12 (5-31) U/L ALT 14 (0-31) U/L Alkaline Phosphatase 59 (39-117) U/L Total Protein 7.0 (6.5-8.0) g/dL Albumin 3.9 (3.5-5.0) g/dL Lipase 28 (8-78) U/L Urine Color Urine Appearance Urine pH (5.0-8.0) Ur Specific [place] (1.005-1.025) Urine Protein (NEG-TRACE) MG/DL Urine Glucose (UA) (NEG) MG/DL Urine Ketones (NEG) MG/DL Urine Blood (NEG) Urine Nitrite (NEG) Ur Leukocyte Esterase (NEG) Urine RBC (0) /HPF Urine WBC (0-4) /HPF Ur Squamous Epith Cells /LPF Urine Bacteria /LPF Urine Test (NEGATIVE) COVID-19 (AUGIE) Negative (Negative) COVID-19 Clin Com See Note Blood Type Antibody Screen Crossmatch 04/29/21 04/29/21 04/29/21 Range/Units 08:53 09:28 09:28 WBC (4.8-10.8) X10*3/uL RBC (4.20-5.50) X10*6/uL Hgb (12.0-16.0) g/dl Hct (37.0-47.0) % MCV (80.0-98.0) fL MCH (27.0-33.0) pg MCHC (31.0-35.0) g/dl RDW (11.0-16.0) % Plt Count (160-400) X10*3/uL MPV (9.4-12.3) fL Immature Gran % (Auto) (0.0-0.4) % Neut % (Auto) (45-73) % Lymph % (Auto) (20-40) % [place] % (Auto) (2-11) % Eos % (Auto) (0-4) % Baso % (Auto) (0-2) % Lymph # (Auto) (1.2-4.9) X10*3/uL [place] # (Auto) (0.1-1.2) X10*3/uL Eos # (Auto) (0.0-0.4) X10*3/uL Baso # (Auto) (0.0-0.2) X10*3/uL Abs Immat Gran (auto) (0.00-0.03) X10*3/uL Absolute Neuts (auto) (2.0-8.3) x10*3/uL Absolute Nucleated RBC (0.0-0.012) X10*3/uL Nucleated RBC % (auto) (0.0-0.2) /100WBC Sodium (135-145) mmol/L Potassium (3.3-5.1) mmol/L Chloride (96-108) mmol/L Carbon Dioxide (22-29) mmol/L Anion Gap (12-20) BUN (9-16) mg/dL Creatinine (0.5-1.4) mg/dL Estim Creat Clear Calc Estimated GFR Random Glucose (60-115) mg/dL Calcium (8.4-10.2) mg/dL Total Bilirubin (0.0-1.0) mg/dL Direct Bilirubin (0.0-0.5) mg/dL AST (5-31) U/L ALT (0-31) U/L Alkaline Phosphatase (39-117) U/L Total Protein (6.5-8.0) g/dL Albumin (3.5-5.0) g/dL Lipase (8-78) U/L Urine Color YELLOW Urine Appearance HAZY Urine pH 7.5 (5.0-8.0) Ur Specific [place] 1.020 (1.005-1.025) Urine Protein NEG (NEG-TRACE) MG/DL Urine Glucose (UA) NEG (NEG) MG/DL Urine Ketones NEG (NEG) MG/DL Urine Blood NEG (NEG) Urine Nitrite NEG (NEG) Ur Leukocyte Esterase 3+ H (NEG) Urine RBC 0 (0) /HPF Urine WBC 15-29 H (0-4) /HPF Ur Squamous Epith Cells 3+ /LPF Urine Bacteria NONE /LPF Urine Test NEGATIVE (NEGATIVE) COVID-19 (AUGIE) (Negative) COVID-19 Clin Com Blood Type B Positive Antibody Screen NEGATIVE Crossmatch See Detail <AVRIL Monroe - Last Filed: 04/29/21 10:08> Discharge Plan Discharge Clinical Impression: Anemia Qualifiers: Anemia type: iron deficiency Iron deficiency anemia type: other iron deficiency Qualified Code(s): D50.8 - Other iron deficiency anemias Vomiting Qualifiers: Vomiting type: unspecified Vomiting Intractability: non-intractable Nausea presence: with nausea Qualified Code(s): R11.2 - Nausea with vomiting, unspecified Diarrhea Qualifiers: Diarrhea type: unspecified type Qualified Code(s): R19.7 - Diarrhea, unspecified <Nidia Rod DO - Last Filed: 04/29/21 10:25> Patient Disposition: Home, Self-Care <Nidia Rod DO - Last Filed: 04/29/21 10:25> Instructions: Acute Nausea and Vomiting (ED), Acute Diarrhea (ED), Anemia (ED), Blood Transfusion (DC) <Nidia Rod DO - Last Filed: 04/29/21 10:25> Additional Instructions: return to ED for any worsening symptoms or concerns take your iron <Nidia Rod DO - Last Filed: 04/29/21 10:25> Prescriptions: No Action metoclopramide HCl [Reglan] 10 mg tablet 10 mg PO Q6H PRN (Reason: nausea and vomiting) Qty: 14 RF: 0 ondansetron 4 mg tablet,disintegrating 4 mg PO Q6-8H PRN (Reason: nausea and vomiting) Qty: 7 RF: 0 ferrous sulfate 325 mg (65 mg iron) tablet 325 mg PO DAILY Qty: 30 RF: 0 <Nidia Rod DO - Last Filed: 04/29/21 10:25> Referrals: [facility] [Primary Care Provider] - 1 week <Nidia Rod DO - Last Filed: 04/29/21 10:25> Stand Alone Forms: Work/School Release <Nidia Rod DO - Last Filed: 04/29/21 10:25> Print Language: Slovak <Nidia Rod DO - Last Filed: 04/29/21 10:25>
[2021-04-29] MEDS: ondansetron HCL 4 MG/2 ML VIAL IVPUSH (07:56)
[2021-04-29] MEDS: 0.9 % Sodium Chloride 1,000 ML 999 ML IV (07:56)
[2021-04-29 08:02] LABS: MANUAL DIFF FLAG NO
[2021-04-29 08:07] LABS: Basophils Percent Auto 0.2 % (0-2); Eosinophils Absolute Auto 0.1 X10*3/uL (0.0-0.4); Eosinophils Percent Auto 1.5 % (0-4); Hematocrit 27.7 % (37.0-47.0); Imm Gran Abs Auto 0.04 X10*3/uL (0.00-0.03); Imm Gran Pct Auto 0.6 % (0.0-0.4); Lymphocytes Absolute Auto 1.2 X10*3/uL (1.2-4.9); Lymphocytes Percent Auto 17.7 % (20-40); Mean Corpuscular HGB Conc 24.9 g/dl (31.0-35.0); Mean Corpuscular Hemoglobin 15.8 pg (27.0-33.0); Mean Platelet Volume 9.6 fL (9.4-12.3); Monocytes Absolute Auto 0.4 X10*3/uL (0.1-1.2); Monocytes Percent Auto 6.6 % (2-11); Neutrophils Absolute Auto 4.8 x10*3/uL (2.0-8.3); Neutrophils Percent Auto 73.4 % (45-73); Platelet Count 485 X10*3/uL (160-400); Red Blood Count 4.36 X10*6/uL (4.20-5.50); Red Cell Distribution Width 22.2 % (11.0-16.0); White Blood Count 6.5 X10*3/uL (4.8-10.8)
[2021-04-29 08:08] LABS: Mean Corpuscular Volume 63.5 fL (80.0-98.0)
[2021-04-29 08:09] LABS: Hemoglobin 6.9 g/dl (12.0-16.0)
[2021-04-29 08:17] LABS: COVID-19 Test Negative (Negative); IDNOW Serial# 9DD0AD1C
--- NOTE | 2021-04-29 08:21 | PC.NURSE ---
DR FELIZ DISCUSSED WITH PT ABOUT LOW HBG PT WILL GET 1 UNIT RBC
[2021-04-29 08:33] LABS: Alanine Aminotransferase 14 U/L (0-31); Albumin Level 3.9 g/dL (3.5-5.0); Alkaline Phosphatase 59 U/L (39-117); Anion Gap 10 (12-20); Aspartate Amino Transferase 12 U/L (5-31); Bilirubin Direct 0.2 mg/dL (0.0-0.5); Bilirubin Total 0.6 mg/dL (0.0-1.0); Blood Urea Nitrogen 12 mg/dL (9-16); Carbon Dioxide 26 mmol/L (22-29); Chloride 109 mmol/L (96-108); Creatinine Clr Calc Pharmacy 161.4; Estimated Glomerular Filt Rate > 60; Glucose Random 109 mg/dL (60-115); Lipase 28 U/L (8-78); Potassium 4.2 mmol/L (3.3-5.1); Sodium 141 mmol/L (135-145)
[2021-04-29 08:49] VITALS: BP 116/40; PULSE 71; RESP 18; O2SAT 99
[2021-04-29 09:40] LABS: Appearance Urine HAZY; Color Urine YELLOW; Glucose Urine UA NEG (NEG); Leukocyte Esterase Urine 3+ (NEG); Nitrite Urine NEG (NEG); PH 7.5 (5.0-8.0); UACC Culture Trigger YES; UPreg QC Valid YES; Urine Blood NEG (NEG); Urine Ketones NEG (NEG); Urine Pregnancy NEGATIVE (NEGATIVE); Urine Protein NEG (NEG-TRACE)
[2021-04-29 09:49] LABS: Squamous Epithelial Cell Urine 3+ /LPF
[2021-04-29 09:50] LABS: RBC Urine 0 /HPF (0)
[2021-04-29 10:44] VITALS: BP 135/58; PULSE 75; RESP 16; TEMP 37.1
[2021-04-29 10:59] VITALS: BP 123/56; PULSE 67; RESP 16; TEMP 36.9
[2021-04-29 12:00] VITALS: BP 123/56; PULSE 67; RESP 16; TEMP 36.9
--- NOTE | 2021-04-29 12:46 | PC.NURSE ---
PT CURRENTLY RECEIVING RBC'S PT IS TOLERATING WELL, INFUSION ALMOST COMEPLETE
[2021-04-29 12:53] VITALS: BP 116/51; PULSE 79; RESP 16; TEMP 36.9
== END 2021-04-29 13:04 | disposition home or self-care (01) ==
PROVIDERS: Emergency Provider Emergency Medicine
DX: D50.8 Other iron deficiency anemias (principal); R11.2 Nausea with vomiting, unspecified; R19.7 Diarrhea, unspecified; R10.13 Epigastric pain; Z20.822 Contact with and (suspected) exposure to COVID-19
CPT/HCPCS: 36415; 36430; 80048; 80076; 81001; 81025; 83690; 85025; 86850; 86900; 86901; 86923; 87086; 87635; 96361; 96374; 99284; 99285; J2405; P9016

== ENCOUNTER 2021-06-02 15:36 | Emergency (ER) | payer MEDICAID, SELFPAY ==
[2021-06-02 16:24] VITALS: BP 143/83; PULSE 90; RESP 16; TEMP 36.8; O2SAT 100; BMI 55.6
--- NOTE | 2021-06-02 16:53 | ED.URI ---
HPI - URI/Sore Throat General Chief Complaint: Upper Respiratory Symptoms Stated Complaint: cough congestion Time Seen by Provider: 06/02/21 16:48 Source: patient Limitations: no limitations History of Present Illness HPI Narrative: Patient presents with cough nasal congestion over the past 3-4 days. Positive sick contacts from family member. Patient is fully vaccinated for COVID-19. Patient states she has a history of aspirin use a pump for that. Patient denies tobacco use. Patient denies any past history of COVID-19 infections. Worsening nasal discharge at this time. No recent travel history no known COVID-19 exposure. No other complaints at this time denies chest pain fever or chills. Related Data Previous Rx's Medication Instructions Recorded metoclopramide HCl 10 mg tablet 10 mg PO Q6H PRN #14 tab 07/20/20 (Reglan) ferrous sulfate 325 mg (65 mg 325 mg PO DAILY #30 tab 03/21/21 iron) tablet ondansetron 4 mg disintegrating 4 mg PO Q6-8H PRN #7 tab 03/21/21 tablet Allergies Allergy/AdvReac Type Severity Reaction Status Date / Time garlic [GARLIC] Allergy Unknown SWELLING Unverified 03/11/20 19:48 Review of Systems Constitutional: Constitutional: Denies body ache(s), Denies chills, Denies fatigue, Denies fever(s), Denies headache(s) and Denies weakness ENT: Denies headache(s), Reports nasal congestion and Reports sore throat Cardiovascular: Cardiovascular: Denies chest pain and Denies dyspnea Respiratory: Respiratory: Reports cough and Denies dyspnea Gastrointestinal: Gastrointestinal: Denies diarrhea, Denies nausea and Denies vomiting Musculoskeletal: Musculoskeletal: Denies back pain Neurologic: Denies headache(s) and Denies weakness Endocrine: Endocrine: Denies fatigue PMF Past Medical History Medical History Anemia Asthma Social History Social History (Updated 04/29/21 @ 07:30 by Nidia Rod DO) Patient Tobacco Use Status: Never used Tobacco Advance Directives: No Advance Directives Information Provided: Yes Patient : No Physical Exam Vital Signs: Vital Signs: Last Vital Signs Temp 98.3 F 06/02/21 16:24 Pulse 90 06/02/21 16:24 Resp 16 06/02/21 16:24 BP 143/83 H 06/02/21 16:24 Pulse Ox 100 06/02/21 16:24 BMI result Body Mass Index 55.6 vital signs have been reviewed as normal and appeared to be correct. Blood pressure normal. Heart rate normal. Respiration rate normal. Temperature normal. Oxygen saturation normal. Appearance: Alert. Oriented X3. No acute distress. Head: Normal external exam. Normocephalic. Atraumatic. Eyes: PERRLA. EOMI. Conjunctiva and sclera normal. Eyelids normal. ENT: Pharynx normal. Uvula midline. Moist mucous membranes. No evidence of peritonsillar abscess otherwise clear Neck: Soft full range of motion CVS: Heart regular rate and rhythm no murmurs and rubs Respiratory: Breath sounds are clear to auscultation bilaterally. No accessory muscle use noted. Back: Full range of motion noted. Skin: Skin warm and dry. Normal skin color. Normal skin turgor. No rashes/lesions/lacerations noted. Extremities: Moving all extremities strength is equal patient is ambulatory Neuro: Oriented X 3. No motor deficit. No sensory deficit. Reflexes normal. Course Course Course Narrative: COVID-19 Viral URI Pharyngitis Sinusitis Patient's room air O2 sats 100% vital signs are otherwise stable. COVID-19 swab pending 5:32 p.m. COVID-19 swab is negative O2 sats on room air 100% symptoms consistent with viral URI MDM - URI/Sore Throat Lab Data Labs: Lab Results 06/02/21 Range/Units 16:56 COVID-19 (AUGIE) Negative (Negative) COVID-19 Clin Com See Note Discharge Plan Discharge Clinical Impression: Upper respiratory infection Qualifiers: URI type: unspecified viral URI Qualified Code(s): J06.9 - Acute upper respiratory infection, unspecified Patient Disposition: Home, Self-Care Instructions: Upper Respiratory Infection (ED) Additional Instructions: Increase fluids rest Tylenol Motrin for fever Call PCP for follow-up COVID-19 test is negative Prescriptions: No Action metoclopramide HCl [Reglan] 10 mg tablet 10 mg PO Q6H PRN (Reason: nausea and vomiting) Qty: 14 RF: 0 ondansetron 4 mg tablet,disintegrating 4 mg PO Q6-8H PRN (Reason: nausea and vomiting) Qty: 7 RF: 0 ferrous sulfate 325 mg (65 mg iron) tablet 325 mg PO DAILY Qty: 30 RF: 0 Stand Alone Forms: Work/School Release
[2021-06-02 17:29] LABS: COVID-19 Test Negative (Negative)
== END 2021-06-02 18:03 | disposition home or self-care (01) ==
PROVIDERS: Physician Assistant; Emergency Provider Emergency Medicine
DX: J06.9 Acute upper respiratory infection, unspecified (principal); Z20.822 Contact with and (suspected) exposure to COVID-19; R05.9 Cough, unspecified
CPT/HCPCS: 36415; 87635; 99283

== ENCOUNTER 2022-01-03 07:40 | Emergency (ER) | payer MEDICAID, SELFPAY ==
[2022-01-03 07:45] VITALS: BP 139/65; PULSE 90; RESP 19; TEMP 37; O2SAT 99; BMI 54.9
[2022-01-03 08:04] LABS: COVID-19 Test Positive (Negative)
[2022-01-03 08:06] LABS: Strep A Nucleic Acid Negative (Negative)
[2022-01-03 08:14] LABS: IDNOW Serial# 9DB6401D; Influenza A Negative (Negative); Influenza B2 Negative (Negative)
--- NOTE | 2022-01-03 08:17 | ED_ITS ---
HPI - General Adult General Chief complaint: Fever Stated complaint: COVID Symptoms Time Seen by Provider: 01/03/22 08:17 Source: patient Mode of arrival: ambulatory Limitations: no limitations History of Present Illness HPI narrative: Patient is a 26 year old female presenting to the emergency department today with fever, sore throat, body aches, and congestion. Patient states that she has been having fevers, sore throat, body aches, and congestion. Patient denies any dizziness, lightheadedness, abdominal pain, nausea, vomiting, chills, blurry vision, double vision, loss of vision, chest pain, difficulty breathing, shortness of breath, back pain, night sweats, pain with urination, increased urinary frequency, increased urinary urgency, blood in her urine or stool, syncope or a near syncopal episode, recent trauma or falls, bowel incontinence, bladder incontinence, bowel retention, bladder retention, or any other complaints at this time. Onset (ago): hour(s) Severity: mild Severity scale (1-10): 2 Quality: dull Pain Consistency: constant Relieving factors: none Exacerbating factors: none Associated symptoms: fever/chills Treatments prior to arrival: none Related Data Previous Rx's Medication Instructions Recorded metoclopramide HCl 10 mg tablet 10 mg PO Q6H PRN nausea and 07/20/20 (Reglan) vomiting #14 tabs ferrous sulfate 325 mg (65 mg 325 mg PO DAILY #30 tabs 03/21/21 iron) tablet ondansetron 4 mg disintegrating 4 mg PO Q6-8H PRN nausea and 03/21/21 tablet vomiting #7 tabs Allergies Allergy/AdvReac Type Severity Reaction Status Date / Time garlic [GARLIC] Allergy Unknown SWELLING Unverified 03/11/20 19:48 Review of Systems Constitutional: Constitutional: Reports no additional constitutional complaints, Reports body ache(s), Denies chills, Reports fever(s) and Denies night sweats Eyes: Eyes: Reports no additional eye complaints, Denies blurry vision, Denies change in vision, Denies diplopia, Denies eye discharge, Denies loss of vision and Denies eye pain ENT: Denies dizziness, Reports nasal congestion and Reports sore throat Cardiovascular: Cardiovascular: Reports no additional cardiovascular complaints, Denies chest pain, Denies lightheadedness, Denies Loss of Consciousness and Denies dyspnea Respiratory: Respiratory: Reports no additional respiratory complaints and Denies dyspnea Gastrointestinal: Gastrointestinal: Reports no additional gastrointestinal complaints, Denies abdominal pain, Denies melena, Denies hematochezia, Denies change in bowel habits and Denies change in stool character Genitourinary: Genitourinary: Denies hematuria, Denies urinary frequency, Denies dysuria, Denies urinary incontinence, Denies urinary hesitancy and Denies urinary urgency Musculoskeletal: Musculoskeletal: Reports no additional musculoskeletal complaints, Denies numbness and Denies tingling Neurologic: Denies dizziness, Denies loss of vision, Denies numbness and Denies tingling Psychiatric: Psychiatric: Reports no additional psychiatric complaints Endocrine: Endocrine: Reports no additional endocrine complaints Hematologic/Lymphatic: Hematologic/Lymphatic: Reports no additional hematologic/lymphatic complaints Allergic/Immunologic: Allergic/Immunologic: Reports no additional allergic/immunologic complaints PMFSH Past Medical History Attestation statement: The following information was validated with the patient. Source: old records reviewed Medical History Anemia Asthma Social History Social History Patient Tobacco Use Status: Never used Tobacco Advance Directives: Yes Advance Directives Information Provided: Yes Advance Directives on File: No Physical Exam ED Vital Signs: Vital Signs - 24 hr 01/03/22 07:45 Temperature 98.6 F Pulse Rate 90 Respiratory Rate 19 Blood Pressure 139/65 Pulse Oximetry 99 Oxygen Delivery Method Room Air BMI result Body Mass Index 54.9 Const General: cooperative, no acute distress, alert and awake Nutritional Appearance: well nourished Orientation/consciousness: patient oriented x3 Limitations: no limitations [facility] Head: Yes normal to inspection and Yes atraumatic Ears: hearing grossly normal bilaterally and external ears normal General nose exam: Normal external nose present, no nasal discharge noted and no epistaxis Face and sinus: Yes normal facial exam, No abrasion and No laceration Mouth: Normal oral and palatal mucosa present, no drooling and no muffled voice Eyes General: appearance normal, both eyes and all related structures Periorbital: periorbital findings normal Eyelids: Yes eyelids normal Conjunctivae: conjunctivae normal Pupils: Equal, round and reactive pupils present EOM: EOMs intact bilaterally Neck Neck: Yes normal visual inspection, Yes full ROM and Yes no lymphadenopathy Chest Chest palpation & inspection: normal inspection of the chest Resp Effort & Inspection: normal respiratory effort and able to speak in complete sentences Auscultation: clear to auscultation bilaterally Cardio Rate: regular rate Rhythm: regular rhythm GI Inspection: Yes normal to inspection Neuro General: patient oriented x3 and moves all extremities Cranial nerves: Yes Equal, round and reactive pupils present Cognition (Neuro): normal cognition Motor exam (neuro): 5/5 motor strength present throughout Sensory Exam: Normal double simultaneous stimulation for sensation Coordination: [id number] test normal Extrem General: Yes normal to inspection, Yes full ROM and Yes capillary refill normal Psych Appearance: grossly normal Mental Status: mental status grossly normal Affect: normal affect Attitude: cooperative Thought process: Normal thought process present Thought content: Normal thought content present Insight: Good insight present (Psych) Medical Decision Making MDM Narrative Medical decision making narrative: Patient is a 26 year old female presenting to the emergency department today with a fever, sore throat, body aches, and nasal congestion. Patient's physical exam was unremarkable. Patient's rapid COVID-19 test was positive. I explained my physical exam findings as well as all test results to the patient. I answered all questions asked by the patient. I stressed the importance of the patient taking her medication as prescribed. I stressed the importance of the patient following up with her primary care provider. I stressed the importance of the patient returning to the emergency department immediately if her symptoms were to worsen or if she were to develop any dizziness, shortness of breath, difficulty breathing, chest pain, blurry vision, loss of vision, nausea, vomiting, abdominal pain, fever, chills, back pain, or any other complaints. Patient verbalized agreement and understanding with this treatment plan and discharge. Differential Diagnosis Differential Diagnosis: COVID-19, viral illness Medical Records Medical records reviewed: Yes I reviewed the patient's medical records. Lab Data Lab results reviewed: Yes I reviewed the patient's lab results. Labs: Lab Results 01/03/22 01/03/22 01/03/22 Range/Units 07:51 07:51 07:51 COVID-19 (AUGIE) Positive A (Negative) COVID-19 Clin Com See Note Influenza Type A (YUKI) Negative (Negative) Influenza Type B (YUKI) Negative (Negative) Influenza A & B Note See Note S. pyogenes GrpA YUKI Negative (Negative) Discharge Plan Discharge Clinical Impression: COVID-19 Patient Disposition: Home, Self-Care Instructions: COVID-19 (Coronavirus Disease 2019) (ED) Additional Instructions: Follow up with your primary care provider. Return to the emergency department immediately if your symptoms worsen or if you develop any dizziness, shortness of breath, difficulty breathing, chest pain, blurry vision, loss of vision, nausea, vomiting, abdominal pain, fever, chills, back pain, or any other complaints. Prescriptions: No Action metoclopramide HCl [Reglan] 10 mg tablet 10 mg PO Q6H PRN (Reason: nausea and vomiting) Qty: 14 0RF ondansetron 4 mg tablet,disintegrating 4 mg PO Q6-8H PRN (Reason: nausea and vomiting) Qty: 7 0RF ferrous sulfate 325 mg (65 mg iron) tablet 325 mg PO DAILY Qty: 30 0RF Referrals: [facility] [place] Family Medicine [Provider Group] (Call to establish and follow up with a primary care provider. If you already have a primary care provider, please follow up with them. ) [facility] [place] [facility] [Provider Group] (Call to establish and follow up with a primary care provider. If you already have a primary care provider, please follow up with them. ) [facility] [place] Primary Care,[facility] [Provider Group] (Call to establish and follow up with a primary care provider. If you already have a primary care provider, please follow up with them. ) Stand Alone Forms: Work/School Release Interventions: ED Discharge Assessment Last Done: 01/03/22 08:24 Discharge Date/Time: 01/03/22 08:25 Print Language: Ukrainian
== END 2022-01-03 08:25 | disposition home or self-care (01) ==
PROVIDERS: Emergency Provider Emergency Medicine
DX: U07.1 COVID-19 (principal); R50.9 Fever, unspecified; Z79.899 Other long term (current) drug therapy
CPT/HCPCS: 87502; 87635; 87651; 99282; 99283

== ENCOUNTER 2022-03-30 07:00 | Emergency (ER) | payer OTHER, MEDICAID, SELFPAY ==
--- NOTE | ~2022-03-30 | XR_ITS ---
EXAMINATION: XR SHOULDER, RIGHT CLINICAL INFORMATION: Pain. COMPARISON: None AP external rotation, Grashey a, transscapular radiographs of the right shoulder: FINDINGS: A single densely sclerotic focus measuring 7 mm diameter with minimal spiculated margins is noted having the appearance of a possible enostosis. Glenohumeral and acromioclavicular joint spacing and alignment are normal in appearance. No dystrophic soft tissue calcifications visualized. No arthropathic changes noted. The visualized right ribs and lung are normal in appearance. XR/XR shoulder RT min 2V IMPRESSION: Single 7 mm benign-appearing sclerotic focus within the proximal humeral metadiaphysis. 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 On the basis of this radiographic study, no definitive additional imaging follow-up is warranted. In the setting of known or suspected malignancy, this finding may be further evaluated with whole body skeletal scintigraphy to assess for additional skeletal lesions. Overall, this finding is most likely to be benign. Radiographs of the right shoulder are otherwise normal.
[2022-03-30 07:04] VITALS: BP 121/76; PULSE 98; RESP 20; TEMP 36.2; O2SAT 98; BMI 55.7
--- NOTE | 2022-03-30 08:09 | ED.GENADULT ---
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 Patient states that she was at work and reached for a mop when all of a sudden she began to have right shoulder pain. Patient denies any dizziness, lightheadedness, abdominal pain, nausea, vomiting, fever, chills, blurry vision, double vision, loss of vision, chest pain, difficulty breathing, shortness of breath, back pain, night sweats, pain with urination, increased urinary frequency, increased urinary urgency, blood in her urine or stool, syncope or a near syncopal episode, recent trauma or falls, bowel incontinence, bladder incontinence, bowel retention, bladder retention, or any other complaints at this time. Onset (ago): day(s) (1) Location: right and upper extremity Radiation: non-radiation Severity: mild Severity scale (1-10): 2 Quality: dull Pain Consistency: constant Relieving factors: none Exacerbating factors: none Associated symptoms: denies other symptoms Treatments prior to arrival: none Related Data Previous Rx's Medication Instructions Recorded metoclopramide HCl 10 mg tablet 10 mg PO Q6H PRN nausea and 07/20/20 (Reglan) vomiting #14 tabs ferrous sulfate 325 mg (65 mg 325 mg PO DAILY #30 tabs 03/21/21 iron) tablet ondansetron 4 mg disintegrating 4 mg PO Q6-8H PRN nausea and 03/21/21 tablet vomiting #7 tabs cyclobenzaprine 5 mg tablet 5 mg PO TID PRN muscle spasm 7 03/30/22 days #21 tabs Allergies Allergy/AdvReac Type Severity Reaction Status Date / Time garlic [GARLIC] Allergy Unknown SWELLING Unverified 03/11/20 19:48 Review of Systems Constitutional: Constitutional: Reports no additional constitutional complaints, Denies chills, Denies fever(s) and Denies night sweats Eyes: Eyes: Reports no additional eye complaints, Denies blurry vision, Denies change in vision, Denies diplopia, Denies eye discharge, Denies loss of vision and Denies eye pain ENT: Denies dizziness Cardiovascular: Cardiovascular: Reports no additional cardiovascular complaints, Denies chest pain, Denies lightheadedness, Denies Loss of Consciousness and Denies dyspnea Respiratory: Respiratory: Reports no additional respiratory complaints and Denies dyspnea Gastrointestinal: Gastrointestinal: Reports no additional gastrointestinal complaints, Denies abdominal pain, Denies melena, Denies hematochezia, Denies change in bowel habits and Denies change in stool character Genitourinary: Genitourinary: Denies hematuria, Denies urinary frequency, Denies dysuria, Denies urinary incontinence, Denies urinary hesitancy and Denies urinary urgency Musculoskeletal: Musculoskeletal: Reports no additional musculoskeletal complaints, Denies numbness and Denies tingling Comments: right shoulder pain Neurologic: Denies dizziness, Denies loss of vision, Denies numbness and Denies tingling Psychiatric: Psychiatric: Reports no additional psychiatric complaints Endocrine: Endocrine: Reports no additional endocrine complaints Hematologic/Lymphatic: Hematologic/Lymphatic: Reports no additional hematologic/lymphatic complaints Allergic/Immunologic: Allergic/Immunologic: Reports no additional allergic/immunologic complaints PMFSH Past Medical History Attestation statement: The following information was validated with the patient. Source: old records reviewed Medical History Anemia Asthma Social History Social History Patient Tobacco Use Status: Never used Tobacco Advance Directives: No Advance Directives Information Provided: No Physical Exam ED Vital Signs: Vital Signs - 24 hr 03/30/22 07:04 Temperature 97.1 F Pulse Rate 98 Respiratory Rate 20 Blood Pressure 121/76 Pulse Oximetry 98 Oxygen Delivery Method Room Air BMI result Body Mass Index 55.7 Const General: cooperative, no acute distress, alert and awake Nutritional Appearance: well nourished Orientation/consciousness: patient oriented x3 Limitations: no limitations HENMT Head: Yes normal to inspection and Yes atraumatic Ears: hearing grossly normal bilaterally and external ears normal General nose exam: Normal external nose present, no nasal discharge noted and no epistaxis Face and sinus: Yes normal facial exam, No abrasion and No laceration Mouth: Normal oral and palatal mucosa present, no drooling and no muffled voice Eyes General: appearance normal, both eyes and all related structures Periorbital: periorbital findings normal Eyelids: Yes eyelids normal Conjunctivae: conjunctivae normal Pupils: Equal, round and reactive pupils present EOM: EOMs intact bilaterally Neck Neck: Yes normal visual inspection, Yes full ROM and Yes no lymphadenopathy Chest Chest palpation & inspection: normal inspection of the chest Resp Effort & Inspection: normal respiratory effort and able to speak in complete sentences Auscultation: clear to auscultation bilaterally Cardio Rate: regular rate Rhythm: regular rhythm GI Inspection: Yes normal to inspection Neuro General: patient oriented x3 and moves all extremities Cranial nerves: Yes Equal, round and reactive pupils present Cognition (Neuro): normal cognition Motor exam (neuro): 5/5 motor strength present throughout Sensory Exam: Normal double simultaneous stimulation for sensation Coordination: [id number]-as-[id number] test normal Extrem General: Yes normal to inspection, Yes full ROM and Yes capillary refill normal Psych Appearance: grossly normal Mental Status: mental status grossly normal Affect: normal affect Attitude: cooperative Thought process: Normal thought process present Thought content: Normal thought content present Insight: Good insight present (Psych) Medical Decision Making MDM Narrative Medical decision making narrative: Patient is a 26 year old female presenting to the emergency department today with right shoulder pain. Patient's physical exam was unremarkable. Patient's right shoulder x-ray showed no acute process. I explained my physical exam findings as well as all test results to the patient. Patient's physical exam is most consistent with a muscle strain/sprain. I answered all questions asked by the patient. Patient received PO Flexeril and IM Toradol which she stated helped her symptoms significantly. I stressed the importance of the patient taking her medication as prescribed. I stressed the importance of the patient following up with her primary care provider, work connection, and if pain persists, an orthopedic provider. I stressed the importance of the patient returning to the emergency department immediately if her symptoms were to worsen or if she were to develop any dizziness, shortness of breath, difficulty breathing, chest pain, blurry vision, loss of vision, nausea, vomiting, abdominal pain, fever, chills, back pain, or any other complaints. Patient verbalized agreement and understanding with this treatment plan and discharge. Medical Records Medical records reviewed: Yes I reviewed the patient's medical records. Imaging Data Right shoulder x-ray: Attestation: I personally reviewed and interpreted this imaging study as follows: My impression: No acute fracture. Radiologist's impression: EXAMINATION: XR SHOULDER, RIGHT CLINICAL INFORMATION: Pain.? COMPARISON: None? AP external rotation, Grashey a, transscapular radiographs of the right shoulder: FINDINGS: A single densely sclerotic focus measuring 7 mm diameter with minimal spiculated margins is noted having the appearance of a possible enostosis. Glenohumeral and acromioclavicular joint spacing and alignment are normal in appearance. No dystrophic soft tissue calcifications visualized. No arthropathic changes noted. The visualized right ribs and lung are normal in appearance. XR/XR shoulder RT min 2V IMPRESSION: Single 7 mm benign-appearing sclerotic focus within the proximal humeral metadiaphysis. 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 On the basis of this radiographic study, no definitive additional imaging follow-up is warranted. In the setting of known or suspected malignancy, this finding may be further evaluated with whole body skeletal scintigraphy to assess for additional skeletal lesions. Overall, this finding is most likely to be benign. Radiographs of the right shoulder are otherwise normal. Dictated By: Landen Kruse MD Signed By: Electronically signed by Landen Kruse MD 03/30/22 0804 Discharge Plan Discharge Clinical Impression: Acute shoulder pain Patient Disposition: Home, Self-Care Instructions: Shoulder Pain (ED) Additional Instructions: Follow up with your primary care provider and if pain persists, follow up with an orthopedic specliast. Return to the emergency department immediately if your symptoms worsen or if you develop any dizziness, shortness of breath, difficulty breathing, chest pain, blurry vision, loss of vision, nausea, vomiting, abdominal pain, fever, chills, back pain, or any other complaints. Unruly un seguimiento con [place] proveedor de atenci?n primaria y, si el dolor persiste, unruly un seguimiento con un especialista en ortopedia. Regrese al departamento de emergencias de inmediato si emilee s?ntomas empeoran o si presenta mareos, falta de aire, dificultad para respirar, dolor de pecho, visi?n borrosa, p?rdida de la visi?n, n?useas, v?mitos, dolor abdominal, fiebre, escalofr?os, dolor de espalda o cualquier otras quejas. Prescriptions: New cyclobenzaprine 5 mg tablet 5 mg PO TID PRN (Reason: muscle spasm) 7 Days Qty: 21 0RF No Action metoclopramide HCl [Reglan] 10 mg tablet 10 mg PO Q6H PRN (Reason: nausea and vomiting) Qty: 14 0RF ondansetron 4 mg tablet,disintegrating 4 mg PO Q6-8H PRN (Reason: nausea and vomiting) Qty: 7 0RF ferrous sulfate 325 mg (65 mg iron) tablet 325 mg PO DAILY Qty: 30 0RF Referrals: [facility] [place] [Provider Group] (Call to establish and follow up with a primary care provider. If you already have a primary care provider, please follow up with them. Llame para establecer y hacer un seguimiento con un proveedor de atenci?n primaria. Si ya tiene un proveedor de atenci?n primaria, unruly un seguimiento con ?l. ) [facility] [place] [facility] [Provider Group] (Call to establish and follow up with a primary care provider. If you already have a primary care provider, please follow up with them. Llame para establecer y hacer un seguimiento con un proveedor de atenci?n primaria. Si ya tiene un proveedor de atenci?n primaria, unruly un seguimiento con ?l.) [facility] [place] [facility] [Provider Group] (Call to establish and follow up with a primary care provider. If you already have a primary care provider, please follow up with them. Llame para establecer y hacer un seguimiento con un proveedor de atenci?n primaria. Si ya tiene un proveedor de atenci?n primaria, unruly un seguimiento con ?l.) [facility] [place] [facility] [Provider Group] (Call to establish and follow up with an orthopedic provider. Llame para establecer y hacer un seguimiento con un proveedor ortop?dico.) [facility] [Provider Group] (Call to establish and follow up with work connection. Llame para establecer y neida seguimiento a la conexi?n laboral.) Stand Alone Forms: Work/School Release Print Language: Irish
[2022-03-30] MEDS: Ketorolac Tromethamine 15 MG/ML VIAL IM (09:20)
[2022-03-30] MEDS: Cyclobenzaprine HCl 5 MG TABLET PO (09:31)
== END 2022-03-30 09:35 | disposition home or self-care (01) ==
PROVIDERS: Emergency Provider Emergency Medicine Emergency Medical Services
DX: Z04.2 Encounter for examination and observation following work accident (principal); G89.11 Acute pain due to trauma; M25.511 Pain in right shoulder
CPT/HCPCS: 73030; 96372; 99283; 99284; J1885

== ENCOUNTER 2022-05-09 06:24 | Emergency (ER) | payer MEDICAID, SELFPAY ==
--- NOTE | ~2022-05-09 | CT_ITS ---
EXAMINATION: CT ABDOMEN AND PELVIS WITHOUT CONTRAST CLINICAL INFORMATION: Abdominal pain COMPARISON: None TECHNIQUE: Multidetector volumetric imaging was performed from the superior aspect of the liver through the pubic symphysis. Sagittal and coronal reformatted images were obtained on the technologist's workstation. This CT examination was performed using dose optimization techniques as appropriate, variously including the following: *Automated exposure control *Adjustment of mA and/or kV according to patient size (this includes techniques or standardized protocols for targeted exams where dose is matched to indication/reason for exam; i.e. extremities or head) *Use of iterative reconstruction technique DLP: 1434 mGy-cm FINDINGS: LUNG BASES: The visualized lung bases are unremarkable. LIVER, GALLBLADDER, AND BILIARY TREE: The liver is normal in size, shape, and attenuation. No focal hepatic lesion or biliary ductal dilatation is present. The gallbladder is normal in size. There is question of gallbladder wall thickening or edema. No gallstones are appreciated by CT scan. PANCREAS: Unremarkable. SPLEEN: The spleen is slightly enlarged measuring 14.2 cm in length. ADRENAL GLANDS: Unremarkable. KIDNEYS AND URETERS: The kidneys are normal in size, shape, and attenuation. No hydronephrosis, hydroureter, or calculi seen. No perinephric stranding. BLADDER: Unremarkable. GASTROINTESTINAL TRACT: The small and large bowel are unremarkable. The appendix is unremarkable. ABDOMINAL WALL: No significant hernia is appreciated. LYMPH NODES: Normal. VASCULAR: Unremarkable. PELVIC VISCERA: Unremarkable. OSSEOUS STRUCTURES: Unremarkable. CT/CT abdomen pelvis wo IV con IMPRESSION: Question abnormal gallbladder with gallbladder wall thickening or edema. No gallstones appreciated by CT scan. Follow-up ultrasound should be considered. Slightly enlarged spleen. Fleischner guidelines were followed.
--- NOTE | ~2022-05-09 | US_ITS ---
EXAMINATION: US ABDOMEN LIMITED CLINICAL INFORMATION: Cholecystitis. COMPARISON: None TECHNIQUE: Real-time imaging of the right upper quadrant abdominal viscera. FINDINGS: PANCREAS: The body the pancreas is homogeneous echotexture. The head and the tail is obscured by overlying gas. LIVER: The liver is normal in size. The liver contour is normal. Parenchymal echogenicity is increased. No focal hepatic lesion. There is no intrahepatic biliary duct dilatation seen. GALLBLADDER: The gallbladder is physiologically distended with echogenic stone measuring 1.9 x 1.5 x 2.3 cm. No additional stones, sludge, polyps or pericholecystic fluid. Mild gallbladder wall thickening measuring 0.65 cm. COMMON BILE DUCT: Normal in caliber measuring 0.32 cm in diameter. RIGHT KIDNEY: Normal. No hydronephrosis. No renal calculi or focal parenchymal lesions. The kidney measures 11.0 cm in maximum dimension. FREE FLUID: None. US/US abdomen limited IMPRESSION: 1. Cholelithiasis with mild gallbladder wall thickening measuring 0.65 cm. No pericholecystic fluid collection. 2. Mild echogenic liver without focal lesion. 3. Visualized pancreas, CBD and the right kidney is unremarkable.
[2022-05-09 06:25] VITALS: BP 126/65; PULSE 90; RESP 19; TEMP 36.8; O2SAT 99; BMI 38.6
[2022-05-09 06:38] LABS: MANUAL DIFF FLAG NO
[2022-05-09 06:46] LABS: Appearance Urine Clear; Color Urine Yellow; Glucose Urine UA Negative (Negative); Leukocyte Esterase Urine Negative (Negative); Nitrite Urine Negative (Negative); Urine Blood Negative (Negative); Urine Ketones Negative (Negative); Urine Protein Negative (Neg-Trace)
[2022-05-09 06:49] LABS: UPreg QC Valid YES; Urine Pregnancy NEGATIVE (NEGATIVE)
[2022-05-09 06:55] LABS: Basophils Percent Auto 0.1 % (0-2); Eosinophils Absolute Auto 0.1 X10*3/uL (0.0-0.4); Eosinophils Percent Auto 1.3 % (0-4); Hemoglobin 7.6 g/dl (12.0-16.0); Imm Gran Abs Auto 0.04 X10*3/uL (0.00-0.03); Imm Gran Pct Auto 0.5 % (0.0-0.4); Lymphocytes Absolute Auto 1.3 X10*3/uL (1.2-4.9); Lymphocytes Percent Auto 15.8 % (20-40); Mean Corpuscular HGB Conc 26.2 g/dl (31.0-35.0); Mean Corpuscular Hemoglobin 16.1 pg (27.0-33.0); Mean Platelet Volume 9.5 fL (9.4-12.3); Monocytes Absolute Auto 0.3 X10*3/uL (0.1-1.2); Monocytes Percent Auto 3.2 % (2-11); Neutrophils Absolute Auto 6.4 x10*3/uL (2.0-8.3); Neutrophils Percent Auto 79.1 % (45-73); Platelet Count 471 X10*3/uL (160-400); Red Blood Count 4.72 X10*6/uL (4.20-5.50); Red Cell Distribution Width 22.1 % (11.0-16.0); White Blood Count 8.2 X10*3/uL (4.8-10.8)
[2022-05-09 06:56] LABS: Mean Corpuscular Volume 61.4 fL (80.0-98.0)
[2022-05-09 07:20] VITALS: BP 113/71; PULSE 85; RESP 14; TEMP 36.6; O2SAT 99
[2022-05-09 07:47] LABS: Alanine Aminotransferase 13 U/L (0-31); Albumin Level 4.2 g/dL (3.5-5.0); Alkaline Phosphatase 73 U/L (39-117); Anion Gap 15 (12-20); Aspartate Amino Transferase 12 U/L (5-31); Bilirubin Total 0.4 mg/dL (0.0-1.0); Blood Urea Nitrogen 10 mg/dL (9-16); Calcium 9.4 mg/dL (8.4-10.2); Carbon Dioxide 23 mmol/L (22-29); Chloride 105 mmol/L (96-108); Creatinine Clr Calc Pharmacy 133.3; Estimated Glomerular Filt Rate > 60; Glucose Random 147 mg/dL (60-115); Lipase 26 U/L (8-78); Potassium 4.7 mmol/L (3.3-5.1); Sodium 138 mmol/L (135-145); Total Protein 7.7 g/dL (6.5-8.0)
[2022-05-09 10:11] VITALS: BP 136/80; PULSE 86; RESP 20; O2SAT 97
--- NOTE | 2022-05-09 10:28 | ED_ITS ---
HPI - Abdominal Pain General Chief Complaint: Abdominal Pain Stated Complaint: pain in abd Time Seen by Provider: 05/09/22 07:27 History of Present Illness HPI narrative: 26-year-old female presents today with having abdominal pain the abdominal pain and ongoing for 3 days associated with nausea it is over the left upper quadrant area. Burning. Positive nausea associated with the symptoms vomiting x3. Patient denies any change in bowel movement. Denies any vaginal bleeding. Nazanin ent is from home. No abdominal surgery. Does not think he is Related Data Previous Rx's Medication Instructions Recorded metoclopramide HCl 10 mg tablet 10 mg PO Q6H PRN nausea and 07/20/20 (Reglan) vomiting #14 tabs ferrous sulfate 325 mg (65 mg 325 mg PO DAILY #30 tabs 03/21/21 iron) tablet ondansetron 4 mg disintegrating 4 mg PO Q6-8H PRN nausea and 03/21/21 tablet vomiting #7 tabs cyclobenzaprine 5 mg tablet 5 mg PO TID PRN muscle spasm 7 03/30/22 days #21 tabs pantoprazole 40 mg tablet,delayed 40 mg PO DAILY #14 tabs 05/09/22 release (Protonix) Allergies Allergy/AdvReac Type Severity Reaction Status Date / Time garlic [GARLIC] Allergy Unknown SWELLING Unverified 03/11/20 19:48 Review of Systems Review of Systems Positive abdominal pain Yes all other systems are reviewed and are negative PMFSH Past Medical History Attestation statement: The following information was validated with the patient. Medical History Anemia Asthma Social History Social History Patient Tobacco Use Status: Never used Tobacco Smoked in Last 30 Days: No Use of substances other than those prescribed or required for medical reasons: No Advance Directives: No Advance Directives Information Provided: No Physical Exam ED Vital Signs: Vital Signs - 24 hr 05/09/22 06:25 05/09/22 07:20 05/09/22 10:11 Temperature 98.2 F 97.8 F Pulse Rate 90 85 86 Respiratory Rate 19 14 20 Blood Pressure 126/65 113/71 136/80 Pulse Oximetry 99 99 97 Oxygen Delivery Method Room Air Room Air Room Air 05/09/22 12:55 05/09/22 14:17 Temperature 98.2 F 98.4 F Pulse Rate 93 88 Respiratory Rate 14 14 Blood Pressure 138/92 H 114/62 Pulse Oximetry 99 99 Oxygen Delivery Method Room Air Room Air BMI result Body Mass Index 38.6 Appearance: Alert. Oriented X3. No acute distress. Eyes: Pupils equal, round and reactive to light. ENT: Pharynx normal. Neck: Normal inspection. Neck supple. No lymph nodes noted. No crepitus CVS: Normal heart rate and rhythm. Pulses normal. Normal S1 and S2 Respiratory: No respiratory distress. Breath sounds normal. No Wheezing. No rales Abdomen: Soft and nontender. No rigidity. No distention. good BS x4 Skin: Skin warm and dry. Normal skin color. Normal skin turgor. Extremities: No lower extremity edema. Neurovascular intact to all extremities. No Lacerations. No Rash Neuro: Oriented X 3. No motor deficit. No sensory deficit. Moving all extermities. No slurred speech Medications Administered Discontinued Medications Generic Name Dose Route Start Last Admin Trade Name Freq PRN Reason Stop Dose Admin Al Hydroxide/Mg Hydroxide 30 ml 05/09/22 10:26 05/09/22 11:32 Magnesium Hydrox/Alum Hydrox 30 Ml Oral.Susp PO 05/09/22 10:27 30 ml ONCE ONE Administration Belladonna Alkaloids/Phenobarbital 10 ml 05/09/22 10:26 05/09/22 11:32 Phenobarb/Hyoscy/Atropine/Scop 10 Ml Elixir PO 05/09/22 10:27 10 ml ONCE ONE Administration Lidocaine HCl 15 ml 05/09/22 10:26 05/09/22 11:32 Lidocaine Hcl Viscous 2 % 15 Ml Solution MUCOUS MEM 05/09/22 10:27 15 ml ONCE ONE Administration MDM - Abdominal Pain MDM Narrative Medical decision making narrative: Patient's CT scan of the abdomen showed mildly gallbladder wall thickening. An ultrasound was done. It showed a gallbladder wall at 0.65 cm. Positive gallstone. LFTs are normal patient well appearing repeat abdominal exam is soft nontender. Patient's case discussed with surgery Dr. Conrad, agree more likely this is secondary to biliary colic. Will have patient follow-up on an outpatient basis avoid fatty food use PPI. Medical Records Attestation: I reviewed the patient's medical records. Lab Data Attestation: I reviewed the patient's lab results. Result diagrams: 05/09/22 06:30 05/09/22 06:30 Labs: Lab Results 05/09/22 05/09/22 05/09/22 Range/Units 06:30 06:30 06:40 WBC 8.2 (4.8-10.8) X10*3/uL RBC 4.72 (4.20-5.50) X10*6/uL Hgb 7.6 L (12.0-16.0) g/dl Hct 29.0 L (37.0-47.0) % MCV 61.4 L (80.0-98.0) fL MCH 16.1 L (27.0-33.0) pg MCHC 26.2 L (31.0-35.0) g/dl RDW 22.1 H (11.0-16.0) % Plt Count 471 H (160-400) X10*3/uL MPV 9.5 (9.4-12.3) fL Immature Gran % (Auto) 0.5 H (0.0-0.4) % Neut % (Auto) 79.1 H (45-73) % Lymph % (Auto) 15.8 L (20-40) % [place] % (Auto) 3.2 (2-11) % Eos % (Auto) 1.3 (0-4) % Baso % (Auto) 0.1 (0-2) % Lymph # (Auto) 1.3 (1.2-4.9) X10*3/uL [place] # (Auto) 0.3 (0.1-1.2) X10*3/uL Eos # (Auto) 0.1 (0.0-0.4) X10*3/uL Baso # (Auto) 0.0 (0.0-0.2) X10*3/uL Abs Immat Gran (auto) 0.04 H (0.00-0.03) X10*3/uL Absolute Neuts (auto) 6.4 (2.0-8.3) x10*3/uL Absolute Nucleated RBC 0.000 (0.0-0.012) X10*3/uL Nucleated RBC % (auto) 0.0 (0.0-0.2) /100WBC Sodium 138 (135-145) mmol/L Potassium 4.7 (3.3-5.1) mmol/L Chloride 105 (96-108) mmol/L Carbon Dioxide 23 (22-29) mmol/L Anion Gap 15 (12-20) BUN 10 (9-16) mg/dL Creatinine 0.75 (0.5-1.4) mg/dL Estim Creat Clear Calc 133.3 Estimated GFR > 60 Random Glucose 147 H (60-115) mg/dL Calcium 9.4 (8.4-10.2) mg/dL Magnesium 2.0 (1.6-2.6) mg/dL Total Bilirubin 0.4 (0.0-1.0) mg/dL AST 12 (5-31) U/L ALT 13 (0-31) U/L Alkaline Phosphatase 73 D (39-117) U/L Total Protein 7.7 (6.5-8.0) g/dL Albumin 4.2 (3.5-5.0) g/dL Lipase 26 (8-78) U/L Urine Color Yellow Urine Appearance Clear Urine pH 8.0 (5.0-9.0) Ur Specific [place] 1.020 (1.005-1.025) Urine Protein Negative (Neg-Trace) mg/dL Urine Glucose (UA) Negative (Negative) mg/dL Urine Ketones Negative (Negative) mg/dL Urine Blood Negative (Negative) Urine Nitrite Negative (Negative) Ur Leukocyte Esterase Negative (Negative) Urine Test (NEGATIVE) 05/09/22 Range/Units 06:40 WBC (4.8-10.8) X10*3/uL RBC (4.20-5.50) X10*6/uL Hgb (12.0-16.0) g/dl Hct (37.0-47.0) % MCV (80.0-98.0) fL MCH (27.0-33.0) pg MCHC (31.0-35.0) g/dl RDW (11.0-16.0) % Plt Count (160-400) X10*3/uL MPV (9.4-12.3) fL Immature Gran % (Auto) (0.0-0.4) % Neut % (Auto) (45-73) % Lymph % (Auto) (20-40) % [place] % (Auto) (2-11) % Eos % (Auto) (0-4) % Baso % (Auto) (0-2) % Lymph # (Auto) (1.2-4.9) X10*3/uL [place] # (Auto) (0.1-1.2) X10*3/uL Eos # (Auto) (0.0-0.4) X10*3/uL Baso # (Auto) (0.0-0.2) X10*3/uL Abs Immat Gran (auto) (0.00-0.03) X10*3/uL Absolute Neuts (auto) (2.0-8.3) x10*3/uL Absolute Nucleated RBC (0.0-0.012) X10*3/uL Nucleated RBC % (auto) (0.0-0.2) /100WBC Sodium (135-145) mmol/L Potassium (3.3-5.1) mmol/L Chloride (96-108) mmol/L Carbon Dioxide (22-29) mmol/L Anion Gap (12-20) BUN (9-16) mg/dL Creatinine (0.5-1.4) mg/dL Estim Creat Clear Calc Estimated GFR Random Glucose (60-115) mg/dL Calcium (8.4-10.2) mg/dL Magnesium (1.6-2.6) mg/dL Total Bilirubin (0.0-1.0) mg/dL AST (5-31) U/L ALT (0-31) U/L Alkaline Phosphatase (39-117) U/L Total Protein (6.5-8.0) g/dL Albumin (3.5-5.0) g/dL Lipase (8-78) U/L Urine Color Urine Appearance Urine pH (5.0-9.0) Ur Specific [place] (1.005-1.025) Urine Protein (Neg-Trace) mg/dL Urine Glucose (UA) (Negative) mg/dL Urine Ketones (Negative) mg/dL Urine Blood (Negative) Urine Nitrite (Negative) Ur Leukocyte Esterase (Negative) Urine Test NEGATIVE (NEGATIVE) Discharge Plan Discharge Clinical Impression: Biliary colic Patient Disposition: Home, Self-Care Instructions: Biliary Colic (ED) Additional Instructions: Please avoid fatty food. Close follow-up on an outpatient basis. Prescriptions: New pantoprazole [Protonix] 40 mg tablet,delayed release (DR/EC) 40 mg PO DAILY Qty: 14 0RF No Action metoclopramide HCl [Reglan] 10 mg tablet 10 mg PO Q6H PRN (Reason: nausea and vomiting) Qty: 14 0RF cyclobenzaprine 5 mg tablet 5 mg PO TID PRN (Reason: muscle spasm) 7 Days Qty: 21 0RF ondansetron 4 mg tablet,disintegrating 4 mg PO Q6-8H PRN (Reason: nausea and vomiting) Qty: 7 0RF ferrous sulfate 325 mg (65 mg iron) tablet 325 mg PO DAILY Qty: 30 0RF Referrals: Colton Conrad MD [Physician] - 05/11/22 Print Language: Faroese
[2022-05-09] MEDS: Magnesium Hydrox/Alum Hydrox 30 ML ORAL.SUSP PO (11:32)
[2022-05-09] MEDS: PHENobarb/Hyoscy/Atropine/Scop 10 ML ELIXIR PO (11:32)
[2022-05-09] MEDS: Lidocaine HCl Viscous 2 % 15 ML SOLUTION MUCOUS MEM (11:32)
[2022-05-09 12:55] VITALS: BP 138/92; PULSE 93; RESP 14; TEMP 36.8; O2SAT 99
[2022-05-09 14:17] VITALS: BP 114/62; PULSE 88; RESP 14; TEMP 36.9; O2SAT 99
== END 2022-05-09 15:32 | disposition home or self-care (01) ==
PROVIDERS: Emergency Provider Emergency Medicine Emergency Medical Services
DX: K80.50 Calculus of bile duct without cholangitis or cholecystitis without obstruction (principal); R10.33 Periumbilical pain; Z79.899 Other long term (current) drug therapy
CPT/HCPCS: 36415; 74176; 76705; 80053; 81003; 81025; 83690; 83735; 85025; 99284

== ENCOUNTER → 2022-05-11 14:42 | Outpatient (BNVA) | payer MEDICAID, SELFPAY | PROVIDERS: PCP Nurse Practitioner; Visit Provider Surgery | DX: K80.20 Calculus of gallbladder without cholecystitis without obstruction (principal); E66.01 Morbid (severe) obesity due to excess calories; Z68.43 Body mass index [BMI] 50.0-59.9, adult | CPT/HCPCS: 99202 ==

== ENCOUNTER 2022-10-07 06:35 | Emergency (ER) | payer MEDICAID, SELFPAY ==
--- NOTE | ~2022-10-07 | US_ITS ---
EXAMINATION: US ABDOMEN LIMITED CLINICAL INFORMATION: Right upper quadrant pain. COMPARISON: 05/09/2022. TECHNIQUE: Real-time imaging of the gallbladder. US/US abdomen limited FINDINGS/IMPRESSION: The study is limited by patient body habitus. Findings suggest an approximately 2 cm, nonmobile stone in the region of the gallbladder neck. No obvious gallbladder wall thickening, hyperemia, or pericholecystic fluid is seen. Common bile duct measures 0.4 cm in diameter, within normal limits.
[2022-10-07 07:22] VITALS: BP 129/68; PULSE 92; RESP 14; TEMP 37; O2SAT 99; BMI 52.3
--- NOTE | 2022-10-07 07:33 | ED_ITS ---
HPI - Abdominal Pain General Chief Complaint: Abdominal Pain Stated Complaint: L abdominal pain, dizzy, nausea Time Seen by Provider: 10/07/22 07:21 Source: patient Mode of arrival: ambulatory Limitations: no limitations History of Present Illness HPI narrative: This is a 27 years old female with morbid obesity and known gallstones presented emergency department complaining of upper abdominal pain for 2 days she denies any fever chills. The MD elicited complaint: abdominal pain Pertinent past history: other (Gallstones) Onset (ago): day(s) (1) Pain Consistency: constant Location: RUQ Severity: moderate Radiation: none Migration to: no migration Exacerbating factors: nothing Relieving factors: nothing Associated symptoms: denies other symptoms Related Data Previous Rx's Medication Instructions Recorded metoclopramide HCl 10 mg tablet 10 mg PO Q6H PRN nausea and 07/20/20 (Reglan) vomiting #14 tabs ferrous sulfate 325 mg (65 mg 325 mg PO DAILY #30 tabs 03/21/21 iron) tablet ondansetron 4 mg disintegrating 4 mg PO Q6-8H PRN nausea and 03/21/21 tablet vomiting #7 tabs cyclobenzaprine 5 mg tablet 5 mg PO TID PRN muscle spasm 7 03/30/22 days #21 tabs pantoprazole 40 mg tablet,delayed 40 mg PO DAILY #14 tabs 05/09/22 release (Protonix) ibuprofen 400 mg tablet 400 mg PO Q6H PRN pain #20 tabs 05/11/22 Allergies Allergy/AdvReac Type Severity Reaction Status Date / Time garlic [GARLIC] Allergy Unknown SWELLING Unverified 05/11/22 15:00 Review of Systems Constitutional: Reports no additional constitutional complaints Reports system reviewed and no additional complaints, except as documented Cardiovascular: Reports no additional cardiovascular complaints Respiratory: Reports no additional respiratory complaints Gastrointestinal: Reports no additional gastrointestinal complaints Reports system reviewed and no additional complaints, except as documented PMF Past Medical History Medical History Anemia Asthma Gallstones Morbid obesity Family History Family History Father No problems noted. Mother Hypertension Social History Social History Household Members: Family Housing: Apartment Patient Tobacco Use Status: Never used Tobacco Advance Directives: No Advance Directives Information Provided: Yes service: No Current occupational status: employed Physical Exam ED Vital Signs: Vital Signs - 24 hr 10/07/22 07:22 10/07/22 10:23 10/07/22 10:39 Temperature 98.6 F 97.9 F 98.0 F Pulse Rate 92 80 70 Respiratory Rate 14 18 14 Blood Pressure 129/68 118/46 L 129/73 Pulse Oximetry 99 Oxygen Delivery Method Room Air 10/07/22 12:01 10/07/22 12:02 Temperature 98.1 F 98.1 F Pulse Rate 74 74 Respiratory Rate 14 14 Blood Pressure 109/69 109/69 Pulse Oximetry 100 Oxygen Delivery Method Room Air BMI result Body Mass Index 52.3 Const Other: Patient looks well, she is not in distress General: cooperative HENMT Head: Yes normal to inspection Face and sinus: Yes normal facial exam Throat: Yes posterior oropharynx normal Neck Neck: Yes normal visual inspection and Yes full ROM Chest Chest palpation & inspection: normal inspection of the chest Resp Effort & Inspection: normal respiratory effort Cardio Jugular venous distension: no JVD Rate: regular rate GI Other: Abdomen exam shows an obese abdomen but soft mild tenderness in the epigastric cardiac no guarding no rebound tenderness Skin General skin exam: no rashes or lesions noted and elasticity normal Rashes: no rashes Course Reevaluation(s) Reevaluation #1: Hemoglobin was noted, patient history of chronic anemia has been hemoglobin was as low as 5.9 in the past, she was seen in the emergency room 04/29/2021 she was transfused and discharged home same day. Patient states that she has an extensive workup including a upper lower endoscopy that she is on hydro supplementation. I did perform a rectal exam stools are brown. I discussed with the patient risk benefit of a possible transfusion given the fact that the hemoglobin is 6.3 today, the patient want to go ahead with the transfusion. As far as the epigastric pain she states that she is better now. Time: 08:54 Reevaluation #2: D/w Dr Paulino [facility]SI[facility] to D/c Reevaluation #3: 12:40 blood transfusion completed will discharge patient home. She has no symptom at this time no abdominal pain Time: 12:40 Medical Decision Making Medical Decision Making MDM Narrative: Patient presented with upper abdominal pain and known gallstone obviously working diagnoses acute colitis status we get labs will do an ultrasound to check the gallbladder wall and reassess Differential Diagnosis Differential Diagnoses: The differential diagnosis associated with the presentation includes Acute cholecystitis/peptic ulcer disease/gastritis Admission/Observation Consideration of admission/observation: Escalation of care including admission/observation considered Consult Healthcare Provider Management of the patient was discussed with: Verification Manager DR GUEVARA surgery Lab Data MDM Lab Attestation statement: I reviewed the patient's lab results. 10/07/22 07:44 10/07/22 07:44 Labs: Lab Results 10/07/22 10/07/22 10/07/22 Range/Units 07:44 07:44 08:58 WBC 9.6 (4.8-10.8) X10*3/uL RBC 4.22 (4.20-5.50) X10*6/uL Hgb 6.3 L* (12.0-16.0) g/dl Hct 24.6 L (37.0-47.0) % MCV 58.3 L (80.0-98.0) fL MCH 14.9 L (27.0-33.0) pg MCHC 25.6 L (31.0-35.0) g/dl RDW 22.0 H (11.0-16.0) % Plt Count 375 (160-400) X10*3/uL MPV 9.7 (9.4-12.3) fL Immature Gran % (Auto) 0.4 (0.0-0.4) % Neut % (Auto) 83.5 H (45-73) % Lymph % (Auto) 11.8 L (20-40) % [place] % (Auto) 3.7 (2-11) % Eos % (Auto) 0.4 (0-4) % Baso % (Auto) 0.2 (0-2) % Lymph # (Auto) 1.1 L (1.2-4.9) X10*3/uL [place] # (Auto) 0.4 (0.1-1.2) X10*3/uL Eos # (Auto) 0.0 (0.0-0.4) X10*3/uL Baso # (Auto) 0.0 (0.0-0.2) X10*3/uL Abs Immat Gran (auto) 0.04 H (0.00-0.03) X10*3/uL Absolute Neuts (auto) 8.0 (2.0-8.3) x10*3/uL Absolute Nucleated RBC 0.000 (0.0-0.012) X10*3/uL Nucleated RBC % (auto) 0.0 (0.0-0.2) /100WBC Sodium 140 (135-145) mmol/L Potassium 4.2 (3.3-5.1) mmol/L Chloride 109 H (96-108) mmol/L Carbon Dioxide 25 (22-29) mmol/L Anion Gap 10 L (12-20) BUN 14 (9-16) mg/dL Creatinine 0.83 (0.5-1.4) mg/dL Estim Creat Clear Calc 148.0 Estimated GFR > 60 Random Glucose 145 H (60-115) mg/dL Calcium 8.7 D (8.4-10.2) mg/dL Total Bilirubin 0.8 (0.0-1.0) mg/dL AST 10 (5-31) U/L ALT 12 (0-31) U/L Alkaline Phosphatase 66 (39-117) U/L Total Protein 6.5 (6.5-8.0) g/dL Albumin 3.8 (3.5-5.0) g/dL Lipase 15 (8-78) U/L Beta HCG, Quant < 2 mIU/mL Stool Occult Blood (NEGATIVE) Blood Type B Positive Antibody Screen NEGATIVE Crossmatch See Detail 10/07/22 Range/Units 09:02 WBC (4.8-10.8) X10*3/uL RBC (4.20-5.50) X10*6/uL Hgb (12.0-16.0) g/dl Hct (37.0-47.0) % MCV (80.0-98.0) fL MCH (27.0-33.0) pg MCHC (31.0-35.0) g/dl RDW (11.0-16.0) % Plt Count (160-400) X10*3/uL MPV (9.4-12.3) fL Immature Gran % (Auto) (0.0-0.4) % Neut % (Auto) (45-73) % Lymph % (Auto) (20-40) % [place] % (Auto) (2-11) % Eos % (Auto) (0-4) % Baso % (Auto) (0-2) % Lymph # (Auto) (1.2-4.9) X10*3/uL [place] # (Auto) (0.1-1.2) X10*3/uL Eos # (Auto) (0.0-0.4) X10*3/uL Baso # (Auto) (0.0-0.2) X10*3/uL Abs Immat Gran (auto) (0.00-0.03) X10*3/uL Absolute Neuts (auto) (2.0-8.3) x10*3/uL Absolute Nucleated RBC (0.0-0.012) X10*3/uL Nucleated RBC % (auto) (0.0-0.2) /100WBC Sodium (135-145) mmol/L Potassium (3.3-5.1) mmol/L Chloride (96-108) mmol/L Carbon Dioxide (22-29) mmol/L Anion Gap (12-20) BUN (9-16) mg/dL Creatinine (0.5-1.4) mg/dL Estim Creat Clear Calc Estimated GFR Random Glucose (60-115) mg/dL Calcium (8.4-10.2) mg/dL Total Bilirubin (0.0-1.0) mg/dL AST (5-31) U/L ALT (0-31) U/L Alkaline Phosphatase (39-117) U/L Total Protein (6.5-8.0) g/dL Albumin (3.5-5.0) g/dL Lipase (8-78) U/L Beta HCG, Quant mIU/mL Stool Occult Blood NEGATIVE (NEGATIVE) Blood Type Antibody Screen Crossmatch Independent Interpretation I performed an independent interpretation of an: Ultrasound Radiology Impression Discussion of test interpretation with radiology: I have reviewed the radiologist's reading. Radiologist Impression: CLINICAL INFORMATION: Right upper quadrant pain. COMPARISON: 05/09/2022. TECHNIQUE: Real-time imaging of the gallbladder. US/US abdomen limited FINDINGS/IMPRESSION: ? The study is limited by patient body habitus. Findings suggest an approximately 2 cm, nonmobile stone in the region of the gallbladder neck. No obvious gallbladder wall thickening, hyperemia, or pericholecystic fluid is seen. ? Common bile duct measures 0.4 cm in diameter, within normal limits. Dictated By: Shay Babb Signed By: <Electronically signed by Shay? Skinny in OV> 10/07/22 0832 DD/ 0816 Medications Administered Discontinued Medications Generic Name Dose Route Start Last Admin Trade Name Freq PRN Reason Stop Dose Admin Ketorolac Tromethamine 30 mg 10/07/22 07:32 10/07/22 08:13 Ketorolac Tromethamine 30 Mg/Ml Vial IVPUSH 10/07/22 07:33 30 mg ONCE ONE Administration Discharge Plan Discharge Clinical Impression: Gallstones, Anemia Patient Disposition: Home, Self-Care Instructions: Gallstones (ED), Anemia (ED) Additional Instructions: Please follow-up with Dr. Conrad you saw him in May for your gallstones Also follow-up with Hematology Prescriptions: No Action metoclopramide HCl [Reglan] 10 mg tablet 10 mg PO Q6H PRN (Reason: nausea and vomiting) Qty: 14 0RF cyclobenzaprine 5 mg tablet 5 mg PO TID PRN (Reason: muscle spasm) 7 Days Qty: 21 0RF pantoprazole [Protonix] 40 mg tablet,delayed release (DR/EC) 40 mg PO DAILY Qty: 14 0RF ondansetron 4 mg tablet,disintegrating 4 mg PO Q6-8H PRN (Reason: nausea and vomiting) Qty: 7 0RF ferrous sulfate 325 mg (65 mg iron) tablet 325 mg PO DAILY Qty: 30 0RF ibuprofen 400 mg tablet 400 mg PO Q6H PRN (Reason: pain) Qty: 20 0RF Referrals: Colton Conrad MD [Physician] - 3 days Lizzeth Bradley MD [Physician] - 2 days
[2022-10-07 07:49] LABS: MANUAL DIFF FLAG NO
[2022-10-07 07:54] LABS: Basophils Percent Auto 0.2 % (0-2); Eosinophils Percent Auto 0.4 % (0-4); Hematocrit 24.6 % (37.0-47.0); Imm Gran Abs Auto 0.04 X10*3/uL (0.00-0.03); Imm Gran Pct Auto 0.4 % (0.0-0.4); Lymphocytes Absolute Auto 1.1 X10*3/uL (1.2-4.9); Lymphocytes Percent Auto 11.8 % (20-40); Mean Corpuscular HGB Conc 25.6 g/dl (31.0-35.0); Mean Corpuscular Hemoglobin 14.9 pg (27.0-33.0); Mean Platelet Volume 9.7 fL (9.4-12.3); Monocytes Absolute Auto 0.4 X10*3/uL (0.1-1.2); Monocytes Percent Auto 3.7 % (2-11); Neutrophils Percent Auto 83.5 % (45-73); Platelet Count 375 X10*3/uL (160-400); Red Blood Count 4.22 X10*6/uL (4.20-5.50); White Blood Count 9.6 X10*3/uL (4.8-10.8)
[2022-10-07 07:55] LABS: Mean Corpuscular Volume 58.3 fL (80.0-98.0)
[2022-10-07 08:02] LABS: Hemoglobin 6.3 g/dl (12.0-16.0)
[2022-10-07 08:12] LABS: Alanine Aminotransferase 12 U/L (0-31); Albumin Level 3.8 g/dL (3.5-5.0); Alkaline Phosphatase 66 U/L (39-117); Anion Gap 10 (12-20); Aspartate Amino Transferase 10 U/L (5-31); Bilirubin Total 0.8 mg/dL (0.0-1.0); Blood Urea Nitrogen 14 mg/dL (9-16); Calcium 8.7 mg/dL (8.4-10.2); Carbon Dioxide 25 mmol/L (22-29); Chloride 109 mmol/L (96-108); Estimated Glomerular Filt Rate > 60; Glucose Random 145 mg/dL (60-115); Lipase 15 U/L (8-78); Potassium 4.2 mmol/L (3.3-5.1); Sodium 140 mmol/L (135-145); Total Protein 6.5 g/dL (6.5-8.0)
[2022-10-07] MEDS: Ketorolac Tromethamine 30 MG/ML VIAL IVPUSH (08:13)
--- NOTE | 2022-10-07 08:14 | PC.NURSE ---
Ultrasound at bedside, IV established medicated per the MAR.
[2022-10-07 08:20] LABS: HCG Quantitative < 2 mIU/mL
[2022-10-07 09:12] LABS: OBS Int Ctl Valid YES; OBS1 NEGATIVE (NEGATIVE)
--- NOTE | 2022-10-07 10:12 | PC.NURSE ---
Pt NSR on monitor, second IV initiated.
[2022-10-07 10:23] VITALS: BP 118/46; PULSE 80; RESP 18; TEMP 36.6
--- NOTE | 2022-10-07 10:25 | PC.NURSE ---
Blood infusing at this time, NSR on monitor. Pt resting comfortably on stretcher
[2022-10-07 10:39] VITALS: BP 129/73; PULSE 70; RESP 14; TEMP 36.7
[2022-10-07 12:01] VITALS: BP 109/69; PULSE 74; RESP 14; TEMP 36.7
[2022-10-07 12:02] VITALS: BP 109/69; PULSE 74; RESP 14; TEMP 36.7; O2SAT 100
--- NOTE | 2022-10-07 12:03 | PC.NURSE ---
Transfusion complete, pt continues to rest comfortably in bed. Call echevarria within reach
== END 2022-10-07 13:12 | disposition home or self-care (01) ==
PROVIDERS: Emergency Provider Emergency Medicine
DX: K80.20 Calculus of gallbladder without cholecystitis without obstruction (principal); D64.9 Anemia, unspecified; R10.10 Upper abdominal pain, unspecified; E66.9 Obesity, unspecified; Z68.43 Body mass index [BMI] 50.0-59.9, adult; Z79.899 Other long term (current) drug therapy
CPT/HCPCS: 36415; 36430; 76705; 80053; 82272; 83690; 84702; 85025; 86850; 86900; 86901; 86923; 96374; 99285; J1885; P9016

== ENCOUNTER 2023-12-31 12:40 | Emergency (ER) | payer MEDICAID, SELFPAY ==
[2023-12-31 13:10] VITALS: BP 121/67; PULSE 117; RESP 18; TEMP 37.4; O2SAT 97; BMI 55.5
[2023-12-31 14:04] LABS: IDNOW Serial# 08D9AD1C; Strep A Nucleic Acid Negative (Negative)
[2023-12-31 14:25] LABS: Influenza A PCR NEGATIVE (Negative); Influenza B PCR NEGATIVE (Negative); Resp Syncy Virus RNA Qual PCR NEGATIVE (Negative); SARS COV2 PCR INHOUSE NEGATIVE (Negative)
[2023-12-31 16:28] VITALS: BP 129/67; PULSE 118; RESP 20; TEMP 37.2; O2SAT 100
--- NOTE | 2023-12-31 18:55 | ED.EAR ---
HPI - Ear Problem General Chief complaint: Ear Problems Stated complaint: R ear pain/sore throat/fever Time Seen by Provider: 12/31/23 17:46 Source: patient and RN notes reviewed Mode of arrival: ambulatory Limitations: no limitations History of Present Illness ED Provider: Alejandra Eaton PA-C HPI Narrative: This is a 28-year-old Citizen [place]-speaking female, with no known medical problems, who presents emergency department with complaints of right ear pain, sore throat, and chills. Patient states that her symptoms started approximately 3 days ago. She denies any sick contacts. She has been taking Tylenol which has provided her with minimal relief. She denies any severe headache, dizziness, inability to swallow, chest pain, cough, abdominal pain, nausea, vomiting or diarrhea. She also states that she applied hydrogen peroxide into her right ear which provided her with no relief. No other complaints or concerns at this time. MD Complaint: ear pain Location: right ear Duration: constant Severity: moderate Relieving factors: nothing Exacerbating factors: nothing Discharge from ear: no Treatment prior to arrival: none Related Data Previous Rx's ?Medication ?Instructions ?Recorded metoclopramide HCl 10 mg tablet 10 mg PO Q6H PRN nausea and 07/20/20 (Reglan) vomiting #14 tabs ferrous sulfate 325 mg (65 mg 325 mg PO DAILY #30 tabs 03/21/21 iron) tablet ondansetron 4 mg disintegrating 4 mg PO Q6-8H PRN nausea and 03/21/21 tablet vomiting #7 tabs cyclobenzaprine 5 mg tablet 5 mg PO TID PRN muscle spasm 7 03/30/22 days #21 tabs pantoprazole 40 mg tablet,delayed 40 mg PO DAILY #14 tabs 05/09/22 release (Protonix) ibuprofen 400 mg tablet 400 mg PO Q6H PRN pain #20 tabs 05/11/22 acetaminophen 500 mg tablet 500 mg PO Q6H PRN pain #30 tabs 12/31/23 (Tylenol Extra Strength) amoxicillin 875 mg-potassium 1 tab PO BID 7 days #14 tabs 12/31/23 clavulanate 125 mg tablet ibuprofen 600 mg tablet 600 mg PO Q6H PRN fever or pain 12/31/23 #30 tabs Allergies Allergy/AdvReac Type Severity Reaction Status Date / Time garlic [GARLIC] Allergy Unknown SWELLING Verified 12/31/23 13:11 Review of Systems Review of Systems: Yes all other systems are reviewed and are negative Constitutional: Constitutional: Reports as per [facility] Past Medical History Medical History Anemia Asthma Gallstones Morbid obesity Family History Family History Father No problems noted. Mother Hypertension Social History Social History Household Members: Family Housing: Apartment Patient Tobacco Use Status: Never used Tobacco Advance Directives: No Advance Directives Information Provided: No Do you have a plan to hurt others: No Plan service: No Current occupational status: employed Physical Exam Vital Signs: Vital Signs: Last Vital Signs Temp 98.9 F 12/31/23 16:28 Pulse 118 H 12/31/23 16:28 Resp 20 12/31/23 16:28 BP 129/67 12/31/23 16:28 Pulse Ox 100 12/31/23 16:28 O2 Del Method Room Air 12/31/23 16:28 BMI result Body Mass Index 55.5 Const: General: cooperative, comfortable and no acute distress Orientation/consciousness: patient oriented x3 Limitations: no limitations HEENT: Other: Right ear canal with white bubbles noted, no canal erythema, right TM is slightly erythematous, and dull. Does have pain with tragal palpation. No mastoid tenderness. Oropharynx is erythematous, with 2+ bilateral tonsils with exudates noted. No trismus, drooling, or dysphonia. Patient has anterior cervical lymphadenopathy noted bilaterally. Head: Yes normal to inspection, Yes normocephalic and Yes atraumatic Ears: hearing grossly normal bilaterally General nose exam: Normal external nose present Face and sinus: Yes normal facial exam Mouth: Normal oral and palatal mucosa present, oropharynx normal and moist mucous membranes Throat: Yes posterior oropharynx normal Eyes: General: appearance normal, both eyes and all related structures Eyelids: Yes eyelids normal Conjunctivae: conjunctivae normal Sclerae: sclerae normal Pupils: Equal, round and reactive pupils present EOM: EOMs intact bilaterally Neck: Neck: Yes normal visual inspection, Yes full ROM and Yes no lymphadenopathy Lymphatic: no lymphadenopathy noted Chest: Chest palpation & inspection: normal inspection of the chest Resp: Effort & Inspection: normal respiratory effort and able to speak in complete sentences Auscultation: clear to auscultation bilaterally, no crackles, no rales, no rhonchi and no wheezes Cardio: Rate: regular rate Rhythm: regular rhythm Heart sounds: S1 normal heart sound present and S2 normal heart sound present GI: Inspection: Yes normal to inspection Skin: General skin exam: no rashes or lesions noted Trauma: no lacerations or abrasions Wounds: no wounds Neuro: General: patient oriented x3 and moves all extremities Cranial nerves: Yes Equal, round and reactive pupils present Extrem: General: Yes normal to inspection Right upper extremity: normal to inspection Left upper extremity: normal to inspection Right lower extremity: normal to inspection Left lower extremity: normal to inspection Medical Decision Making Medical Decision Making [facility] Narrative: This is a 28-year-old female who presents emergency department with complaints of ear pain and sore throat x3 days. On arrival, patient speaking in full sentences under no acute distress, lungs are clear to auscultation bilaterally. Oropharynx is erythematous with tonsillar hypertrophy and exudates noted. Uvula is midline. She does have anterior cervical lymphadenopathy noted. No trismus, drooling, or dysphonia. Right ear appears to be infected. Differential diagnoses for this patient include strep pharyngitis, tonsillitis, otitis media, otitis externa, [employer]-unlikely. Patient was tested for strep, COVID, flu, and RSV which were. Discussed findings with patient. Given findings of tonsillitis as well as right otitis media, will treat with Augmentin. Discussed strict return precautions. She understands and agrees with plan. Patient stable for discharge. Differential Diagnosis Differential Diagnoses: The differential diagnosis associated with the presentation includes See above Admission/Observation Consideration of admission/observation: Escalation of care including admission/observation considered Escalation of care including admission/observation considered however given workup today not warranted at this time. Lab Data [facility] Lab Attestation statement: I reviewed the patient's lab results. Negative viral swabs Labs: Lab Results 12/31/23 Range/Units 13:35 Influenza Type A (PCR) NEGATIVE (Negative) Influenza Type B (PCR) NEGATIVE (Negative) RSV RNA Qual (PCR) NEGATIVE (Negative) SARS-CoV-2 RNA (RT-PCR) NEGATIVE (Negative) S. pyogenes GrpA UYKI Negative (Negative) Discharge Plan Discharge Clinical Impression: Acute tonsillitis Otitis media Qualifiers: Otitis media type: unspecified Chronicity: acute Qualified Code(s): H66.90 - Otitis media, unspecified, unspecified ear Patient Disposition: Home, Self-Care Instructions: Ear Infection (ED), Tonsillitis (ED) Additional Instructions: You were seen in the emergency department due to ear pain and sore throat. You tested negative for COVID, flu, RSV and strep. You have an ear infection on the right side. Also have inflamed tonsils. I am treating you with an antibiotic, finish the entire course even if you are feeling better. Saltwater gargles, hot tea with honey, warm soups can also help with your symptoms. If any new or worsening symptoms occur including but not limited to on able to swallow, chest pain, shortness of breath, please return for re-evaluation Prescriptions: New amoxicillin-pot clavulanate 875-125 mg tablet 1 tab PO BID 7 Days Qty: 14 0RF ibuprofen 600 mg tablet 600 mg PO Q6H PRN (Reason: fever or pain) Qty: 30 0RF acetaminophen [Tylenol Extra Strength] 500 mg tablet 500 mg PO Q6H PRN (Reason: pain) Qty: 30 0RF No Action metoclopramide HCl [Reglan] 10 mg tablet 10 mg PO Q6H PRN (Reason: nausea and vomiting) Qty: 14 0RF cyclobenzaprine 5 mg tablet 5 mg PO TID PRN (Reason: muscle spasm) 7 Days Qty: 21 0RF pantoprazole [Protonix] 40 mg tablet,delayed release (DR/EC) 40 mg PO DAILY Qty: 14 0RF ondansetron 4 mg tablet,disintegrating 4 mg PO Q6-8H PRN (Reason: nausea and vomiting) Qty: 7 0RF ferrous sulfate 325 mg (65 mg iron) tablet 325 mg PO DAILY Qty: 30 0RF ibuprofen 400 mg tablet 400 mg PO Q6H PRN (Reason: pain) Qty: 20 0RF Print Language: Citizen [place]
== END 2023-12-31 21:07 | disposition home or self-care (01) ==
PROVIDERS: Emergency Provider Emergency Medicine; PCP Internal Medicine
DX: J03.90 Acute tonsillitis, unspecified (principal); H92.01 Otalgia, right ear; Z03.818 Encounter for observation for suspected exposure to other biological agents ruled out
CPT/HCPCS: 0241U; 87651; 99281; 99283